=== PATIENT | female | born 2000 | race Caucasian/White ===

== ENCOUNTER 2021-08-14 18:53 | Emergency (ER) | payer MEDICAID, SELFPAY ==
[2021-08-14 18:54] VITALS: BP 116/69; PULSE 78; RESP 18; TEMP 36.5; O2SAT 99
--- NOTE | 2021-08-14 19:16 | ED.GENADUL_ITS ---
Discharge Plan Disposition Patient Disposition: HOME Condition: Stable Discharge Details Clinical Impression: Enteritis, UTI (urinary tract infection) Primary Care Provider: Unknown,Unknown ED Provider: Marquis Urban Home Meds and New Rx's Prescriptions: New sulfamethoxazole-trimethoprim [Bactrim DS] 800-160 mg tablet 1 tab PO BID Qty: 10 RF: 0 dicyclomine 20 mg tablet 20 mg PO TID Qty: 10 RF: 0 ondansetron HCl [Zofran] 4 mg tablet 4 mg PO Q8H PRNQty: 10 RF: 0 Discharge Instructions Instructions: Urinary Tract Infection in Women (ED), Enteritis (ED) Additional Instructions: Bactrim, Zofran, Bentyl as directed. Wfmw-qdy-fryxgrd medications as directed for symptomatic control. Plenty of fluids to avoid dehydration. Please watch for new or worsening symptoms and return to the ER for any concerns. Lastly, please contact your primary care provider tomorrow to discuss your ER visit and need for outpatient reevaluation. Medical Decision Making 20-year-old female, no significant past medical history, presents with nausea, vomiting, lower abdominal pain, dysuria and urinary hesitancy over the past 24 hours. Has not taken any medications for her symptoms. Seen at the urgent care and sent to the ER for further evaluation. Clinically she appears well, nontoxic, hemodynamically stable. Abdomen is nonacute. No CVA tenderness. Based upon her subjective complaints, concern for UTI, pyelonephritis, renal stone, obstruction, etc. There is no McBurney point tenderness. Denies any hematuria, vaginal bleeding or discharge. Based upon her presentation extremely low suspicion for ovarian torsion. Patient given Toradol prior to arrival. Plan is to obtain IV access, give IV fluid, and obtain routine medical screening laboratory values. Patient reports no improvement of her discomfort. In fact, getting slightly wo rse. Given IV Tylenol CBC unremarkable, no leukocytosis. Chemistries are unremarkable except for AST of 13. Urinalysis reveals lysed blood, large leuk esterase, 0-2 red cells and 20-50 white cells. Moderate epithelials and bacteria. While this does reveal contamination, certainly concerning for infection. Patient will be given 1 tablet Bactrim DS as well as 200 mg. Will attempt to obtain another urine sample Patient was able to provide another urine sample. Negative blood, negative nitrate, small leuk esterase. 0-2 red cells, 3-5 white cells, moderate epithelial cells rare bacteria. Both samples with contamination, neither indicated a culture reflexively but I have ordered 1 given my concern of her presentation. Discussed work-up thus far with patient. Laboratory values do not reveal any obvious emergent process. Again no leukocytosis. Given her presentation I do believe treating her for a UTI is reasonable. She has no CVA tenderness, low suspicion for acute pyelonephritis. Patient reports that she does not feel well and at the urgent care they discussed ultrasound. I explained to her that I cannot obtain an ultrasound at this time in the evening but I could set her up for an ultrasound tomorrow morning versus obtaining CT imaging of the abdomen and pelvis evening while she is still here. Patient would like to move forward with a CT now. CT imaging reveals enteritis with reactive mesenteric inflammation I discussed the laboratory values once again with the patient as well as the CT findings. For her suspected UTI will provide 5-day prescription of Bactrim. For her enteritis, I will provide a prescription of Bentyl. We discussed the importance of xrhb-obz-bwgptdz medication as directed for symptomatic control and staying adequately hydrate. She is comfortable this plan and has no additional questions or concerns. I will also provide her a prescription for Zofran for her nausea. She will contact her primary care provider tomorrow to discuss her symptoms, ER visit, need for outpatient reevaluation. Standard discharge and return precautions were provided This documentation was generated using [employer] dictation system, please disregard any oddities of phrase or misspellings. Imaging Data Radiologic Study: Attestation: I personally reviewed and interpreted this imaging study as follows: Imaging: CT Scan Radiologist's impression: PROCEDURE INFORMATION: Exam: CT Abdomen And Pelvis With Contrast Exam date and time: 08/14/2021 9:21 PM Age: 20 years old Clinical indication: Abdominal pain; Other: Abd. Back pain, n/v TECHNIQUE: Imaging protocol: Computed tomography of the abdomen and pelvis with contrast. Contrast material: OMNIPAQUE 350; Contrast volume: 100 ml; Contrast route: INTRAVENOUS (IV); COMPARISON: No relevant prior studies available. FINDINGS: Lungs: Small pleural-based opacities are noted in the lower lobes bilaterally. No specific consolidation. Distal airways are clear. Liver: Normal. No mass. Gallbladder and bile ducts: Normal. No calcified stones. No ductal dilation. Pancreas: Normal. No ductal dilation. Spleen: Normal. No splenomegaly. Adrenal glands: Normal. No mass. Kidneys and ureters: Normal. No hydronephrosis. Stomach and bowel: Unremarkable stomach. Nondilated small bowel. Fat planes around loops of small bowel are indistinct. There are no inflammatory changes observed around the colon. Appendix: Normal appendix. Intraperitoneal space: Mild mesenteric fat stranding. No significant free fluid. Negative for free air. Negative for abscess. Vasculature: Unremarkable. No abdominal aortic aneurysm. JAEL BRADLEY Preliminary Radiology Report [employer]KEEPING SERVICE SALES AGENT (QA) DISCREPANCY? If there is a discrepancy between the preliminary and final interpretation, please notify Andel via [email or web address]. If you do not have access to our QA portal, call our QA team at [phone] CONFIDENTIALITY STATEMENT This report is intended only for the use of the referring physician, and only in accordance with law, If you received this in error, call [phone] Page 2 of 2 Lymph nodes: Mesenteric lymph nodes are mildly prominent. Negative for pathologic lymphadenopathy. Urinary bladder: Unremarkable as visualized. Reproductive: Unremarkable as visualized. Dominant follicle right ovary 2.0 cm. Bones/joints: Unremarkable. No acute fracture. Soft tissues: Unremarkable. IMPRESSION: Findings of enteritis with reactive mesenteric inflammation Lab Data Lab results reviewed: Yes I reviewed the patient's lab results. Labs: 08/14/21 22:17 Urine - Clean Catch Urine Culture - Pending Laboratory Tests Range/Units 08/14/21 08/14/21 08/14/21 19:30 19:30 19:40 WBC (4.4-10.8) 10^3/uL 7.38 RBC (3.93-5.22) 10^6/uL 4.86 Hgb (11.2-15.7) g/dL 14.3 Hct (36.0-46.0) % 43.0 MCV (80-95) fL 88.5 MCH (27.0-33.0) pg 29.4 MCHC (32.0-36.0) % 33.3 RDW (11.7-14.6) % 11.9 Plt Count (130-400) 10^3/uL 292 MPV (8.0-11.0) fL 8.8 Immature Gran % 0.5 Neutrophils % 50.6 Lymphocytes % 37.5 Monocytes % 6.2 Eosinophils % 4.5 Basophils % 0.7 Nucleated RBC % % 0 Absolute Neutrophils (1.2-6.7) 10^3/uL 3.73 Absolute Lymphocytes (1.2-3.4) 10^3/uL 2.77 Absolute Monocytes (0.1-0.8) 10^3/uL 0.46 Absolute Eosinophils (0.0-0.7) 10^3/uL 0.33 Absolute Basophils (0.0-0.2) 10^3/uL 0.05 Sodium (136-145) mmol/L 139 Potassium (3.5-5.1) mmol/L 4.2 Chloride (98-107) mmol/L 103 Carbon Dioxide (21.0-32.0) mmol/L 28.5 Anion Gap (3-11) mmol/L 7.5 BUN (7-18) mg/dL 15 Creatinine (0.55-1.02) mg/dL 0.8 Estimated GFR/1.73 m2 (mL/min/1.73m2) >= 60.00 Glucose (74-106) mg/dL 77 Calcium (8.5-10.1) mg/dL 8.9 Total Bilirubin (0.2-1.0) mg/dL 0.4 AST (15-37) U/L 13 L ALT (14-59) U/L 20 Alkaline Phosphatase (46-116) U/L 70 Total Protein (6.4-8.2) g/dL 8.2 Albumin (3.4-5.0) g/dL 4.4 Lipase (73-393) U/L 129 Urine Color (Yellow) Yellow Urine Clarity (Clear) Cloudy Urine pH (5-8) 5.5 Ur Specific Fisher (1.005-1.025) >= 1.030 H Urine Protein (Negative) mg/dL 100 H Urine Ketones (Negative) mg/dL Negative Urine Blood (Negative) Trace-lysed H Urine Nitrite (Negative) Negative Urine Bilirubin (Negative) Negative Urine Urobilinogen (Up TO 0.2) EU/dL 0.2 Ur Leukocyte Esterase (Negative) Large H Urine RBC (0-2) HPF 0-2 Urine WBC (0-5) HPF 20-50 H Ur Epithelial Cells (Negative) HPF Moderate Urine Crystals (Negative) HPF Negative Urine Bacteria (Negative) HPF Moderate Urine Casts (Negative) LPF Negative Urine Mucus (Negative) Trace Ur Culture Indicated? No/Sq. Contamination Urine Glucose (Negative) mg/dL Negative Range/Units 08/14/21 20:42 WBC (4.4-10.8) 10^3/uL RBC (3.93-5.22) 10^6/uL Hgb (11.2-15.7) g/dL Hct (36.0-46.0) % MCV (80-95) fL MCH (27.0-33.0) pg MCHC (32.0-36.0) % RDW (11.7-14.6) % Plt Count (130-400) 10^3/uL MPV (8.0-11.0) fL Immature Gran % Neutrophils % Lymphocytes % Monocytes % Eosinophils % Basophils % Nucleated RBC % % Absolute Neutrophils (1.2-6.7) 10^3/uL Absolute Lymphocytes (1.2-3.4) 10^3/uL Absolute Monocytes (0.1-0.8) 10^3/uL Absolute Eosinophils (0.0-0.7) 10^3/uL Absolute Basophils (0.0-0.2) 10^3/uL Sodium (136-145) mmol/L Potassium (3.5-5.1) mmol/L Chloride (98-107) mmol/L Carbon Dioxide (21.0-32.0) mmol/L Anion Gap (3-11) mmol/L BUN (7-18) mg/dL Creatinine (0.55-1.02) mg/dL Estimated GFR/1.73 m2 (mL/min/1.73m2) Glucose (74-106) mg/dL Calcium (8.5-10.1) mg/dL Total Bilirubin (0.2-1.0) mg/dL AST (15-37) U/L ALT (14-59) U/L Alkaline Phosphatase (46-116) U/L Total Protein (6.4-8.2) g/dL Albumin (3.4-5.0) g/dL Lipase (73-393) U/L Urine Color (Yellow) Yellow Urine Clarity (Clear) Clear Urine pH (5-8) 6.0 Ur Specific Fisher (1.005-1.025) >= 1.030 H Urine Protein (Negative) mg/dL Negative Urine Ketones (Negative) mg/dL Negative Urine Blood (Negative) Negative Urine Nitrite (Negative) Negative Urine Bilirubin (Negative) Negative Urine Urobilinogen (Up TO 0.2) EU/dL 0.2 Ur Leukocyte Esterase (Negative) Small H Urine RBC (0-2) HPF 0-2 Urine WBC (0-5) HPF 3-5 Ur Epithelial Cells (Negative) HPF Moderate Urine Crystals (Negative) HPF Negative Urine Bacteria (Negative) HPF Rare Urine Casts (Negative) LPF Negative Urine Mucus (Negative) Moderate Ur Culture Indicated? No/Sq. Contamination Urine Glucose (Negative) mg/dL Negative HPI General Mode of arrival: EMS . Date/Time Provider Initiated Documentation: 08/14/21 18:57 . Limitations to Documentation: no limitations . Information obtained by: patient . HPI Narrative: This is a 20-year-old female, denies significant past medical history, presenting to the ER from urgent care for evaluation of urinary hesitancy, and dysuria that began last night associated with bilateral lower abdominal and back pain, reporting slightly worse on the right side. She has not taken any mwas-aee-ivpkndh medication for her symptoms. At the urgent care she was given Toradol and sent to the ER for further evaluation and potential ultrasound. Patient denies recent sick contacts. She reports mild headache. Denies headache, neck pain, chest pain, shortness of breath, current nausea. Reports vomiting x2 yesterday. Denies hematuria, diarrhea or constipation. Reports that her menstrual cycle was approximately 1 month ago, denies vaginal bleeding or discharge. Denies skin rash. Patient admits that this feels like a UTI but states it feels worse than what she remembers feeling like in the past. Related Data Home Medications Medication Instructions Recorded Confirmed dicyclomine 20 mg PO TID #10 tab 08/14/21 ondansetron HCl [Zofran] 4 mg PO Q8H PRN #10 tab 08/14/21 sulfamethoxazole-trimethoprim 1 tab PO BID #10 tab 08/14/21 [Bactrim DS] Previous Rx's Medication Instructions Recorded dicyclomine 20 mg PO TID #10 tab 08/14/21 ondansetron HCl [Zofran] 4 mg PO Q8H PRN #10 tab 08/14/21 sulfamethoxazole-trimethoprim 1 tab PO BID #10 tab 08/14/21 [Bactrim DS] Allergies Allergy/AdvReac Type Severity Reaction Status Date / Time No Known Allergies Allergy Unverified 08/14/21 19:01 General Stated Complaint: Urinary TELMA: 3 Review of Systems Constitutional Constitutional: Denies fever(s) and Reports headache(s) ENT Ears, Nose, Mouth, and Throat: Reports headache(s) and Denies neck pain Cardiovascular Cardiovascular: Denies chest pain and Denies dyspnea Respiratory Respiratory: Denies cough and Denies dyspnea Gastrointestinal Gastrointestinal: Reports abdominal pain, Denies constipation, Denies diarrhea and Reports vomiting Genitourinary Genitourinary: Denies abnormal vaginal bleeding, Denies hematuria, Reports dysuria, Denies pelvic pain, Reports urinary hesitancy and Denies vaginal discharge Musculoskeletal Musculoskeletal: Reports back pain and Denies neck pain Integumentary/Breasts Skin/Breast: Denies rash Neurologic Neurologic: Reports headache(s) PFSH All Active Problems (Updated 08/14/21 @ 22:36 by HOLLIE Richards) Enteritis (Acute) UTI (urinary tract infection) (Acute) Social History Smoking/Tobacco Use Status: Never Smoking risk assessment performed?: Yes Alcohol Intake: never Drug use: Never Substance use type: does not use Do you feel safe at home: Yes Do you feel safe in your relationship?: Yes Exam Const General: cooperative, healthy appearing, comfortable and no acute distress Orientation: alert and awake [facility] Head: normal to inspection, normocephalic and atraumatic Face and sinus: normal facial exam Mouth: moist mucous membranes Throat: posterior oropharynx normal Eyes General: appearance normal, both eyes and all related structures Conjunctivae: conjunctivae normal Neck Neck: normal visual inspection, full ROM, trachea midline and supple Resp Effort & Inspection: normal respiratory effort and able to speak in complete sentences Auscultation: clear to auscultation bilaterally Cardio Rate: regular rate Rhythm: regular rhythm GI Inspection: normal to inspection Palpation: soft, not firm, no guarding, no pulsatile masses and tender (Diffuse lower, mild.) not at McBurney's point, Quintero's sign negative and with no rebound tenderness Auscultation: normal bowel sounds Back/Spine/Pelvis Back: no CVA tenderness and back tenderness (Diffuse mild lumbar) Skin General skin exam: no rashes or lesions noted Neuro General: patient alert, patient awake, moves all extremities and no focal motor deficits Cognition: normal cognition Speech: speech normal Gait: normal gait Sensory Exam: no sensory deficits noted Psych Appearance: grossly normal Mental Status: mental status grossly normal Course Vital Signs Vital signs: Vital Signs Temperature 36.5 C 08/14/21 18:54 Pulse 78 08/14/21 18:54 Respiratory Rate 18 08/14/21 18:54 Blood Pressure 116/69 08/14/21 18:54 Pulse Oximetry 99 08/14/21 18:54 Temperature 36.5 C 08/14/21 18:54 Temperature Source Temporal Artery Scan 08/14/21 18:54 Pulse 78 08/14/21 18:54 Respiratory Rate 18 08/14/21 18:54 Respiratory Effort Non-Labored 08/14/21 18:59 Blood Pressure 116/69 08/14/21 18:54 Blood Pressure Position Sitting 08/14/21 18:54 Pulse Oximetry 99 08/14/21 18:54 Oxygen Delivery Method Room Air 08/14/21 18:54 Oxygen Flow Rate 0 08/14/21 18:54 Pain Level 6 08/14/21 18:59
[2021-08-14 19:36] LABS: Abs Immature Grans 0.04 10^3/uL (0.0-0.06); Absolute Basophil Count 0.05 10^3/uL (0.0-0.2); Absolute Eosinophil Count 0.33 10^3/uL (0.0-0.7); Absolute Lymphocyte Count 2.77 10^3/uL (1.2-3.4); Absolute Monocyte Count 0.46 10^3/uL (0.1-0.8); Absolute Neutrophil Count 3.73 10^3/uL (1.2-6.7); Basophils % 0.7; Eosinophils % 4.5; HGB 14.3 g/dL (11.2-15.7); Immature Grans % 0.5; Lymphocytes % 37.5; MCH 29.4 pg (27.0-33.0); MCHC 33.3 % (32.0-36.0); MCV 88.5 fL (80-95); MPV 8.8 fL (8.0-11.0); Monocytes % 6.2; Neutrophils % 50.6; Nucleated RBC 0 %; Platelet Count 292 10^3/uL (130-400); RBC 4.86 10^6/uL (3.93-5.22); RDW 11.9 % (11.7-14.6); RDW-SD 38.7 fL; WBC 7.38 10^3/uL (4.4-10.8)
[2021-08-14] MEDS: Normal Saline 1,000 ML 1000 ML IV (19:46)
[2021-08-14 19:50] LABS: ALT 20 U/L (14-59); AST 13 U/L (15-37); Albumin 4.4 g/dL (3.4-5.0); Alkaline Phosphatase 70 U/L (46-116); Anion Gap 7.5 mmol/L (3-11); BUN 15 mg/dL (7-18); Bilirubin, Total 0.4 mg/dL (0.2-1.0); CO2 28.5 mmol/L (21.0-32.0); CREATININE 0.8 mg/dL (0.55-1.02); Calcium 8.9 mg/dL (8.5-10.1); Chloride 103 mmol/L (98-107); Glucose 77 mg/dL (74-106); Lipase 129 U/L (73-393); Potassium 4.2 mmol/L (3.5-5.1); Sodium 139 mmol/L (136-145); Total Protein 8.2 g/dL (6.4-8.2)
[2021-08-14] MEDS: ACETAMINOPHEN 1,000 MG/100 ML BTL 400 MG IVPB (20:01)
[2021-08-14 20:20] LABS: Bilirubin Negative (Negative); Blood Trace-lysed (Negative); Clarity Cloudy (Clear); Glucose Negative (Negative); Ketones Negative (Negative); Leukocyte Esterase Large (Negative); Nitrite Negative (Negative); Specific Gravity >= 1.030 (1.005-1.025); Urobilinogen 0.2 EU/dL (Up TO 0.2); pH 5.5 (5-8)
[2021-08-14 20:27] LABS: Bacteria Moderate HPF (Negative); C & S Indicated? No/Sq. Contamination; Casts Negative LPF (Negative); Crystals Negative HPF (Negative); Epithelial Cells Moderate HPF (Negative); Mucus Trace (Negative); RBC 0-2 HPF (0-2); WBC 20-50 HPF (0-5)
[2021-08-14 20:57] LABS: Bilirubin Negative (Negative); Blood Negative (Negative); Clarity Clear (Clear); Glucose Negative (Negative); Ketones Negative (Negative); Leukocyte Esterase Small (Negative); Nitrite Negative (Negative); Specific Gravity >= 1.030 (1.005-1.025); Urobilinogen 0.2 EU/dL (Up TO 0.2)
[2021-08-14 21:05] LABS: RBC 0-2 HPF (0-2)
[2021-08-14 21:06] LABS: Bacteria Rare HPF (Negative); C & S Indicated? No/Sq. Contamination; Casts Negative LPF (Negative); Crystals Negative HPF (Negative); Epithelial Cells Moderate HPF (Negative); Mucus Moderate (Negative)
--- NOTE | 2021-08-14 21:15 | DI.CT_ITS ---
Exam(s) CT ABDOMEN PELVIS W EXAM: CT ABDOMEN PELVIS W CLINICAL HISTORY: abd/back pain, n/v TECHNIQUE: Imaging Protocol: Axial computed tomography images with coronal and sagittal reformatted images were created and reviewed CONTRAST MATERIAL: Intravenous: Omnipaque 350 Contrast volume:100 mL Oral: No COMPARISON: No exams were available for comparison FINDINGS: ABDOMEN: Lung Bases: Normal where visualized. Liver: Normal density. No measurable mass. Portal, Superior Mesenteric, and Splenic Veins: Unremarkable. Gallbladder and Biliary Tract: No radiodense calculus or dilation. Pancreas: Normal density, no abnormal calcifications or inflammatory process. Spleen: Normal. Adrenals: No masses seen. Kidneys: Normal size, contour and axis. No radiodense stones or obstructive uropathy. No masses seen. Abdominal Aorta: Abdominal portion non-dilated. Bowel: No obstruction or bowel wall thickening. Appendix is unremarkable. Peritoneal Cavity: No ascites, collection or mesenteric inflammatory response. No free air. Lymph Nodes: Mildly enlarged lymph nodes are seen in the mesentery in the right lower quadrant. Bones: Within normal limits for the patient's age. Soft Tissues: Unremarkable. PELVIS: Bladder: Symmetric distention, no gross wall thickening. Reproductive Organs: Unremarkable as visualized. There is a 2 cm right ovarian cyst. Lymph Nodes: Please see above. Bones: Within normal limits for the patient's age. IMPRESSION: 1. Mildly enlarged lymph nodes in the mesentery. This may represent a mesenteric adenitis. 2. 2 cm right ovarian cyst. RADIATION DOSE DELIVERED: 993.03mGy.cm Total DLP DATA REPOSITORY: All CT scans at this facility are submitted to the National Radiology Data Registry (NRDR) Dose Index Registry (DIR) with the [employer] ([employer]). RADIATION OPTIMIZATION: All CT scans at this facility use at least one of these dose optimization te chniques: automated exposure control; mA and/or kV adjustment per patient size (includes targeted exa ms where dose is matched to clinical indication); or iterative reconstruction.
[2021-08-14] MEDS: Omnipaque 350 MG/ML 100 ML BTL IJ (21:45)
[2021-08-14] MEDS: Phenazopyridine 200 MG TAB PO (21:48)
[2021-08-14] MEDS: Sulfameth/Trimeth DS TAB 1 TAB PO (21:48)
[2021-08-14] MEDS: Normal Saline Flush 10 ML SYR IVP (21:49)
[2021-08-14 21:56] VITALS: BP 97/64; PULSE 78; RESP 16; TEMP 36.5; O2SAT 100
--- NOTE | 2021-08-14 22:23 | DI.VRAD_ITS ---
PROCEDURE INFORMATION: Exam: CT Abdomen And Pelvis With Contrast Exam date and time: 08/14/2021 9:21 PM Age: 20 years old Clinical indication: Abdominal pain; Other: Abd. Back pain, n/v TECHNIQUE: Imaging protocol: Computed tomography of the abdomen and pelvis with contrast. Contrast material: OMNIPAQUE 350; Contrast volume: 100 ml; Contrast route: INTRAVENOUS (IV); COMPARISON: No relevant prior studies available. FINDINGS: Lungs: Small pleural-based opacities are noted in the lower lobes bilaterally. No specific consolidation. Distal airways are clear. Liver: Normal. No mass. Gallbladder and bile ducts: Normal. No calcified stones. No ductal dilation. Pancreas: Normal. No ductal dilation. Spleen: Normal. No splenomegaly. Adrenal glands: Normal. No mass. Kidneys and ureters: Normal. No hydronephrosis. Stomach and bowel: Unremarkable stomach. Nondilated small bowel. Fat planes around loops of small bowel are indistinct. There are no inflammatory changes observed around the colon. Appendix: Normal appendix. Intraperitoneal space: Mild mesenteric fat stranding. No significant free fluid. Negative for free air. Negative for abscess. Vasculature: Unremarkable. No abdominal aortic aneurysm. Lymph nodes: Mesenteric lymph nodes are mildly prominent. Negative for pathologic lymphadenopathy. Urinary bladder: Unremarkable as visualized. Reproductive: Unremarkable as visualized. Dominant follicle right ovary 2.0 cm. Bones/joints: Unremarkable. No acute fracture. Soft tissues: Unremarkable. IMPRESSION: Findings of enteritis with reactive mesenteric inflammation. Dictated and Authenticated by: Jay Singh MD. Ordering:PAULINE Cho MD
--- NOTE | 2021-08-15 02:11 | NUR.NOTE ---
Nursing Note: need to talk with care management about a pcp and a ride home [place] and the referral is in the care management mail box
== END 2021-08-15 05:59 | disposition home or self-care (01) ==
PROVIDERS: Emergency Provider Physician Assistant
DX: N39.0 Urinary tract infection, site not specified (principal); B96.89 Other specified bacterial agents as the cause of diseases classified elsewhere; K52.9 Noninfective gastroenteritis and colitis, unspecified; M54.9 Dorsalgia, unspecified; R11.2 Nausea with vomiting, unspecified; R10.9 Unspecified abdominal pain
CPT/HCPCS: 36415; 80053; 81025; 83690; 96361; 96365; 99284; 74177; 81003; 81015; 85025; 87086; J0131; J3490

== ENCOUNTER 2021-08-30 09:03 | Emergency (ER) | payer MEDICAID, SELFPAY ==
[2021-08-30] VITALS (34 sets, daily range): BP systolic 78–108; BP diastolic 11–67; PULSE 56–117; RESP 16; TEMP 36.6–37.1; O2SAT 95–100
--- NOTE | 2021-08-30 09:13 | W.ED.GENAD ---
Discharge Plan Disposition Patient Disposition: HOME Condition: Improving Discharge Details Clinical Impression: Abdominal pain, Nausea vomiting and diarrhea, Hypokalemia Primary Care Provider: Unknown,Unknown ED Provider: Marquis Urban Home Meds and New Rx's Prescriptions: New metoclopramide HCl [Reglan] 10 mg tablet 10 mg PO Q6H PRNQty: 10 RF: 0 Continued dicyclomine 20 mg tablet 20 mg PO TID Qty: 10 RF: 0 ondansetron HCl [Zofran] 4 mg tablet 4 mg PO Q8H PRNQty: 10 RF: 0 Discharge Instructions Instructions: Hypokalemia (ED), Acute Nausea and Vomiting (ED), Abdominal Pain (ED) Additional Instructions: Reglan as directed. You may also use [id number] Imodium as directed for symptomatic control of your diarrhea. Bowel rest, clear liquid diet, advance as tolerated. Please watch for new or worsening symptoms and return to the ER for any concerns. Lastly, I would like you to contact your primary care provider later today or tomorrow to discuss your ongoing symptoms, need for outpatient reevaluation, potential need for referral to specialty such as GI for further evaluation as well. Medical Decision Making 20-year-old female presents for intermittent, ongoing abdominal cramping, nausea, vomiting, diarrhea, feels dehydrated. Patient was seen in the ER on 08-14, given antibiotics for a UTI as well as diagnosed enteritis per CT. She did not finish taking all of her antibiotics but denies any pelvic pain, dysuria or hematuria. Patient contacted her primary care provider today who recommended coming to the ER. Patient states that she has not been sleeping very well and feels very tired. Also reports overall decreased p.o. intake. Clinically she has a nonsurgical abdominal examination, is afebrile, blood pressure is in the 90s over 60s which appears to be near her baseline when comparing to last visit, she is mentating without difficulty. She does have tachycardia at 112. Plan is to obtain IV access, obtain routine screening laboratory values as well as give IV fluid, 1 L normal saline, 1 L lactated Ringer's, and give IV Zofran. Will obtain stool sample given her ongoing diarrhea Patient received her Zofran IV fluid, reports nausea is much improved, no vomiting under my care. Unable to provide a stool sample Laboratory values reveal no evidence of leukocytosis or anemia. Her platelet count is normal at 183. Potassium is slightly low at 3.2, will give 40 p.o. and 10 IV. Her BUN is 10, creatinine 0.8 with a GFR greater than 60. Glucose 102. LFTs unremarkable. Lipase 64 Still awaiting stool and urine sample. No vomiting while under my care. Discussed results with patient. She is concerned that her symptoms been present for so long, would like another CT of her abdomen and pelvis. We discussed that outpatient referral to GI and further evaluations or subspecialty may be appropriate as well. Patient is also requesting that we test her thyroid as she knows thyroid issues run in her family TSH is normal at 0.72. Her urinalysis reveals small leuk esterase, otherwise unremarkable. Still awaiting stool sample. CT unremarkable for obvious emergent process Patient was able to provide a stool sample. Awaiting results. We discussed options, patient has a ride home but they are about 40 minutes away. Plan is that she will wait in the ER for her C. difficile test and her ride home. She received both liters of IV fluid and her heart rate is now in the 80s. Blood pressure is essentially unchanged 90s over 60s, she continues to mentate without difficulty. No vomiting while under my care. She is comfortable discharge home. Strict discharge and return precautions provided. She has Zofran at home, will provide Reglan. We discussed bowel rest and the importance of contacting her primary care provider to discuss her ER visit need for outpatient This documentation was generated using [employer] dictation system, please disregard any oddities of phrase or misspellings. C. difficile is negative. Awaiting stool pathogen and culture Medical Records Medical records reviewed: Yes I reviewed the patient's medical records. Imaging Data Radiologic Study: Attestation: I personally reviewed and interpreted this imaging study as follows: Imaging: CT Scan Radiologist's impression: Exam(s) CT ABDOMEN PELVIS W EXAM: CT ABDOMEN PELVIS W INDICATION: Patient enteritis 2 weeks ago, worsening symptoms. COMPARISON: CT CT ABDOMEN PELVIS W from 08/14/2021 TECHNIQUE: FINDINGS: CT examination of the abdomen and pelvis was performed with a bolus infusion of 100 cc of Omnipaque 350. Images obtained through the lung bases are unremarkable. The liver is unremarkable in appearance. Gallbladder and bile ducts are CT normal. Pancreas appears normal. Spleen is borderline enlarged and otherwise unremarkable in appearance. Adrenals appear normal. The kidneys are unremarkable with no evidence of hydronephrosis, nephrolithiasis, or renal mass.. Urinary bladder unremarkable. Abdominal aorta is of normal diameter and no major vascular abnormality is seen. No abdominal wall hernia. No abdominal or pelvic adenopathy. ASSISTANT CORPORATE SECRETARY structures appear intact. Appendix is normal. No evidence of diverticulitis or bowel obstruction. IMPRESSION: Question mild splenomegaly. Otherwise negative CT examination of the abdomen and pelvis. Lab Data Lab results reviewed: Yes I reviewed the patient's lab results. Labs: Laboratory Tests Range/Units 08/30/21 08/30/21 08/30/21 09:20 09:20 09:20 WBC (4.4-10.8) 10^3/uL 4.35 L RBC (3.93-5.22) 10^6/uL 4.74 Hgb (11.2-15.7) g/dL 14.1 Hct (36.0-46.0) % 40.2 MCV (80-95) fL 84.8 MCH (27.0-33.0) pg 29.7 MCHC (32.0-36.0) % 35.1 RDW (11.7-14.6) % 11.6 L Plt Count (130-400) 10^3/uL 183 D MPV (8.0-11.0) fL 8.6 Immature Gran % 0.5 Neutrophils % 69.6 Lymphocytes % 20.5 Monocytes % 7.8 Eosinophils % 0.9 Basophils % 0.7 Nucleated RBC % % 0 Absolute Neutrophils (1.2-6.7) 10^3/uL 3.03 Absolute Lymphocytes (1.2-3.4) 10^3/uL 0.89 L Absolute Monocytes (0.1-0.8) 10^3/uL 0.34 Absolute Eosinophils (0.0-0.7) 10^3/uL 0.04 Absolute Basophils (0.0-0.2) 10^3/uL 0.03 VBG Lactate (0.6-1.4) mmol/L 0.9 Sodium (136-145) mmol/L 135 L Potassium (3.5-5.1) mmol/L 3.2 L Chloride (98-107) mmol/L 101 Carbon Dioxide (21.0-32.0) mmol/L 22.4 Anion Gap (3-11) mmol/L 11.6 H BUN (7-18) mg/dL 10 Creatinine (0.55-1.02) mg/dL 0.8 Estimated GFR/1.73 m2 (mL/min/1.73m2) >= 60.00 Glucose (74-106) mg/dL 102 Calcium (8.5-10.1) mg/dL 8.6 Total Bilirubin (0.2-1.0) mg/dL 0.7 AST (15-37) U/L 18 ALT (14-59) U/L 16 Alkaline Phosphatase (46-116) U/L 65 Total Protein (6.4-8.2) g/dL 7.6 Albumin (3.4-5.0) g/dL 4.0 Lipase (73-393) U/L 64 TSH (0.36-3.74) uIU/mL Urine Color (Yellow) Urine Clarity (Clear) Urine pH (5-8) Ur Specific [place] (1.005-1.025) Urine Protein (Negative) mg/dL Urine Ketones (Negative) mg/dL Urine Blood (Negative) Urine Nitrite (Negative) Urine Bilirubin (Negative) Urine Urobilinogen (Up TO 0.2) EU/dL Ur Leukocyte Esterase (Negative) Urine RBC (0-2) HPF Urine WBC (0-5) HPF Ur Epithelial Cells (Negative) HPF Urine Crystals (Negative) HPF Urine Bacteria (Negative) HPF Urine Casts (Negative) LPF Urine Mucus (Negative) Urine Other (Negative) Ur Culture Indicated? Urine Glucose (Negative) mg/dL COVID-19 Source SARS-CoV-2 (PCR) (Negative) Range/Units 08/30/21 08/30/21 08/30/21 09:20 10:00 11:21 WBC (4.4-10.8) 10^3/uL RBC (3.93-5.22) 10^6/uL Hgb (11.2-15.7) g/dL Hct (36.0-46.0) % MCV (80-95) fL MCH (27.0-33.0) pg MCHC (32.0-36.0) % RDW (11.7-14.6) % Plt Count (130-400) 10^3/uL MPV (8.0-11.0) fL Immature Gran % Neutrophils % Lymphocytes % Monocytes % Eosinophils % Basophils % Nucleated RBC % % Absolute Neutrophils (1.2-6.7) 10^3/uL Absolute Lymphocytes (1.2-3.4) 10^3/uL Absolute Monocytes (0.1-0.8) 10^3/uL Absolute Eosinophils (0.0-0.7) 10^3/uL Absolute Basophils (0.0-0.2) 10^3/uL VBG Lactate (0.6-1.4) mmol/L Sodium (136-145) mmol/L Potassium (3.5-5.1) mmol/L Chloride (98-107) mmol/L Carbon Dioxide (21.0-32.0) mmol/L Anion Gap (3-11) mmol/L BUN (7-18) mg/dL Creatinine (0.55-1.02) mg/dL Estimated GFR/1.73 m2 (mL/min/1.73m2) Glucose (74-106) mg/dL Calcium (8.5-10.1) mg/dL Total Bilirubin (0.2-1.0) mg/dL AST (15-37) U/L ALT (14-59) U/L Alkaline Phosphatase (46-116) U/L Total Protein (6.4-8.2) g/dL Albumin (3.4-5.0) g/dL Lipase (73-393) U/L TSH (0.36-3.74) uIU/mL 0.72 Urine Color (Yellow) Yellow Urine Clarity (Clear) Sl Cloudy Urine pH (5-8) 6.0 Ur Specific [place] (1.005-1.025) 1.015 Urine Protein (Negative) mg/dL Negative Urine Ketones (Negative) mg/dL Negative Urine Blood (Negative) Negative Urine Nitrite (Negative) Negative Urine Bilirubin (Negative) Negative Urine Urobilinogen (Up TO 0.2) EU/dL 0.2 Ur Leukocyte Esterase (Negative) Small H Urine RBC (0-2) HPF Negative Urine WBC (0-5) HPF 0-2 Ur Epithelial Cells (Negative) HPF Rare Urine Crystals (Negative) HPF Negative Urine Bacteria (Negative) HPF Rare Urine Casts (Negative) LPF Negative Urine Mucus (Negative) Negative Urine Other (Negative) Negative Ur Culture Indicated? No Urine Glucose (Negative) mg/dL Negative COVID-19 Source Nasal/Nares SARS-CoV-2 (PCR) (Negative) Negative HPI General Mode of arrival: ambulatory. Date/Time Provider Initiated Documentation: 08/30/21 09:03. Limitations to Documentation: no limitations. Information obtained by: patient. HPI Narrative: This is a 20-year-old female, denies significant past medical history, presenting to the ER reporting abdominal cramping, back pain, nausea, vomiting that has been going on all months. She was seen in the ER on August 14, placed on antibiotics for a UTI and diagnosed with enteritis via CT. She reports only taking a few days worth of the antibiotics. Since that time she has had intermittent abdominal pain, nausea, vomiting, diarrhea and constipation states that over the past 3 or 4 days symptoms have worsened, she is not sleeping, reports feeling tired, lethargic, concern for dehydration. Feels like she is having muscle spasms. She denies recent bad food exposure or sick contacts. Denies fever, chest pain, shortness of breath, dysuria, black tarry stools or bright red blood in her stools. Patient states that she has had her to vaccinations for COVID. She denies smoking, drug use, only rare alcohol use. Patient states that yesterday evening she had 2 pure liquid bowel movements that she was unable to control. She reports diffuse abdominal cramping. Related Data Home Medications Medication Instructions Recorded Confirmed dicyclomine 20 mg PO TID #10 tab 08/14/21 08/30/21 ondansetron HCl [Zofran] 4 mg PO Q8H PRN #10 tab 08/14/21 08/30/21 metoclopramide HCl [Reglan] 10 mg PO Q6H PRN #10 tab 08/30/21 Previous Rx's Medication Instructions Recorded dicyclomine 20 mg PO TID #10 tab 08/14/21 ondansetron HCl [Zofran] 4 mg PO Q8H PRN #10 tab 08/14/21 metoclopramide HCl [Reglan] 10 mg PO Q6H PRN #10 tab 08/30/21 Allergies Allergy/AdvReac Type Severity Reaction Status Date / Time Benzodiazepines AdvReac Unverified 08/30/21 09:15 diphenhydramine AdvReac Unverified 08/30/21 09:15 [From Randallreesebraden] General TELMA: 3 Review of Systems Constitutional Constitutional: Denies fever(s) and Reports headache(s) ENT Ears, Nose, Mouth, and Throat: Reports headache(s) and Denies neck pain Cardiovascular Cardiovascular: Denies chest pain and Denies dyspnea Respiratory Respiratory: Denies cough and Denies dyspnea Gastrointestinal Gastrointestinal: Reports abdominal pain, Denies melena, Denies hematochezia, Reports constipation, Reports diarrhea, Reports nausea and Reports vomiting Genitourinary Genitourinary: Denies dysuria Musculoskeletal Musculoskeletal: Reports back pain, Reports muscle cramps and Denies neck pain Integumentary/Breasts Skin/Breast: Denies rash Neurologic Neurologic: Reports headache(s) and Reports weakness (Generalized) Hematologic/Lymphatic Hematologic/Lymphatic: Denies easy bleeding and Denies easy bruising PFSH All Active Problems (Updated 08/30/21 @ 13:50 by HOLLIE Richards) Enteritis (Acute) UTI (urinary tract infection) (Acute) Abdominal pain (Acute) Nausea vomiting and diarrhea (Acute) Hypokalemia (Acute) Social History Smoking/Tobacco Use Status: Never Smoking risk assessment performed?: Yes Alcohol Intake: never Drug use: Never Substance use type: does not use Do you feel safe at home: Yes Do you feel safe in your relationship?: Yes Exam Const General: cooperative, healthy appearing, comfortable and no acute distress Orientation: alert, awake and oriented x3 HENMT Head: normal to inspection, normocephalic and atraumatic Face and sinus: normal facial exam Mouth: moist mucous membranes abnormal (dry) Throat: posterior oropharynx normal Eyes General: appearance normal, both eyes and all related structures Conjunctivae: conjunctivae normal Neck Neck: normal visual inspection, full ROM, trachea midline and supple Resp Effort & Inspection: normal respiratory effort and able to speak in complete sentences Auscultation: clear to auscultation bilaterally Cardio Rate: tachycardic (112) Rhythm: regular rhythm GI Inspection: normal to inspection Palpation: soft, not firm, no guarding, no pulsatile masses and tender (Diffuse, mild) not at McBurney's point, Quintero's sign negative and with no rebound tenderness Auscultation: normal bowel sounds Back/Spine/Pelvis Back: no CVA tenderness and No back tenderness Skin General skin exam: no rashes or lesions noted Neuro General: patient alert, patient awake, patient oriented x3, moves all extremities and no focal motor deficits Cognition: normal cognition Speech: speech normal Gait: normal gait Motor: muscle tone normal throughout Sensory Exam: no sensory deficits noted Extrem General: normal to inspection, full ROM and capillary refill normal Psych Appearance: grossly normal Mental Status: mental status grossly normal
[2021-08-30] MEDS: Lactated Ringers 1,000 ML 1000 ML IV (09:28)
[2021-08-30 09:29] LABS: Lactate 0.9 mmol/L (0.6-1.4)
[2021-08-30 09:31] LABS: Abs Immature Grans 0.02 10^3/uL (0.0-0.06); Absolute Basophil Count 0.03 10^3/uL (0.0-0.2); Absolute Eosinophil Count 0.04 10^3/uL (0.0-0.7); Absolute Lymphocyte Count 0.89 10^3/uL (1.2-3.4); Absolute Monocyte Count 0.34 10^3/uL (0.1-0.8); Absolute Neutrophil Count 3.03 10^3/uL (1.2-6.7); Basophils % 0.7; Eosinophils % 0.9; HCT 40.2 % (36.0-46.0); HGB 14.1 g/dL (11.2-15.7); Immature Grans % 0.5; Lymphocytes % 20.5; MCH 29.7 pg (27.0-33.0); MCHC 35.1 % (32.0-36.0); MCV 84.8 fL (80-95); MPV 8.6 fL (8.0-11.0); Monocytes % 7.8; Neutrophils % 69.6; Nucleated RBC 0 %; Platelet Count 183 10^3/uL (130-400); RBC 4.74 10^6/uL (3.93-5.22); RDW 11.6 % (11.7-14.6); RDW-SD 35.8 fL; WBC 4.35 10^3/uL (4.4-10.8)
[2021-08-30] MEDS: Ondansetron 4 MG/2 ML VIAL IVP (09:31)
[2021-08-30 09:52] LABS: ALT 16 U/L (14-59); AST 18 U/L (15-37); Alkaline Phosphatase 65 U/L (46-116); Anion Gap 11.6 mmol/L (3-11); BUN 10 mg/dL (7-18); Bilirubin, Total 0.7 mg/dL (0.2-1.0); CO2 22.4 mmol/L (21.0-32.0); CREATININE 0.8 mg/dL (0.55-1.02); Calcium 8.6 mg/dL (8.5-10.1); Chloride 101 mmol/L (98-107); Glucose 102 mg/dL (74-106); Lipase 64 U/L (73-393); Potassium 3.2 mmol/L (3.5-5.1); Sodium 135 mmol/L (136-145); Total Protein 7.6 g/dL (6.4-8.2)
[2021-08-30 10:07] LABS: Source Nasal/Nares
[2021-08-30] MEDS: Potassium Chloride 20 MEQ TABCR 40 MEQ PO (10:27)
[2021-08-30] MEDS: POTASSIUM CHLORIDE 10 MEQ/100 ML BAG 100 MEQ IVPB (10:30)
--- NOTE | 2021-08-30 10:45 | DI.CT_ITS ---
Exam(s) CT ABDOMEN PELVIS W EXAM: CT ABDOMEN PELVIS W INDICATION: Patient enteritis 2 weeks ago, worsening symptoms. COMPARISON: CT CT ABDOMEN PELVIS W from 08/14/2021 TECHNIQUE: FINDINGS: CT examination of the abdomen and pelvis was performed with a bolus infusion of 100 cc of Omnipaque 3 50. Images obtained through the lung bases are unremarkable. The liver is unremarkable in appearance. Gallbladder and bile ducts are CT normal. Pancreas appears normal. Spleen is borderline enlarged and otherwise unremarkable in appearance. Adrenals appear normal. The kidneys are unremarkable with no evidence of hydronephrosis, nephrolithiasis, or renal mass.. Ur inary bladder unremarkable. Abdominal aorta is of normal diameter and no major vascular abnormality is seen. No abdominal wall hernia. No abdominal or pelvic adenopathy. ECDIS N NAVIGATION OPERATOR structures appear intact. Appendix is normal. No evidence of diverticulitis or bowel obstruction. IMPRESSION: Question mild splenomegaly. Otherwise negative CT examination of the abdomen and pelvis. RADIATION DOSE DELIVERED: 920.76mGy.cm Total DLP 920.76mGy.cm Total DLP 17.41mGy CTDIvol RADIATION OPTIMIZATION: All CT scans at this facility use at least one of these dose optimization te chniques: automated exposure control; mA and/or kV adjustment per patient size (includes targeted exa ms where dose is matched to clinical indication); or iterative reconstruction.
[2021-08-30 10:48] LABS: COVID-19 PCR Negative (Negative)
[2021-08-30] MEDS: Dicyclomine 20 MG TAB PO (10:58)
[2021-08-30] MEDS: Ketorolac 30 MG/ML VIAL IVP (10:59)
[2021-08-30] MEDS: Normal Saline 1,000 ML 1000 ML IV (11:12)
[2021-08-30] MEDS: Omnipaque 350 MG/ML 100 ML BTL IJ (12:06)
[2021-08-30 12:22] LABS: Bilirubin Negative (Negative); Blood Negative (Negative); Clarity Sl Cloudy (Clear); Glucose Negative (Negative); Ketones Negative (Negative); Leukocyte Esterase Small (Negative); Nitrite Negative (Negative); Specific Gravity 1.015 (1.005-1.025); Urobilinogen 0.2 EU/dL (Up TO 0.2)
[2021-08-30 12:35] LABS: Bacteria Rare HPF (Negative); C & S Indicated? No; Casts Negative LPF (Negative); Crystals Negative HPF (Negative); Epithelial Cells Rare HPF (Negative); Mucus Negative (Negative); Other Cells Negative (Negative); RBC Negative HPF (0-2); WBC 0-2 HPF (0-5)
[2021-08-30 13:21] LABS: TSH (W/Ref FT4) 0.72 uIU/mL (0.36-3.74)
[2021-08-30 14:10] LABS: C Diff PCR Negative (Negative)
[2021-08-31 14:51] LABS: Campylobacter PCR Negative (Negative); Salmonella PCR Negative (Negative); Shiga Toxin PCR Negative (Negative); Shigella/Enteroinvasive Ecoli Negative (Negative)
== END 2021-08-30 14:25 | disposition home or self-care (01) ==
PROVIDERS: Emergency Provider Physician Assistant
DX: R10.9 Unspecified abdominal pain (principal); R11.2 Nausea with vomiting, unspecified; E87.6 Hypokalemia; R00.0 Tachycardia, unspecified; Z20.822 Contact with and (suspected) exposure to COVID-19
CPT/HCPCS: 36415; 80053; 81025; 83690; 87493; 87505; 87635; 96361; 96365; 96375; 99284; 99285; 74177; 81003; 81015; 83605; 84443; 85025; 87086; J1885; J2405; J3480; J3490

== ENCOUNTER 2021-09-27 02:29 | Outpatient (CLI) | payer MEDICAID, SELFPAY | END 2021-09-27 02:30 | disposition home or self-care (01) | LOC: LBO 02:29 | PROVIDERS: PCP Student in an Organized Health Care Education/Training Program; Visit Provider Student in an Organized Health Care Education/Training Program ==

== ENCOUNTER 2021-11-17 12:00 | Outpatient (REF) | payer MEDICAID, SELFPAY | END 2021-11-17 12:01 | disposition home or self-care (01) | LOC: LBN 12:00 | PROVIDERS: PCP Student in an Organized Health Care Education/Training Program; Visit Provider Student in an Organized Health Care Education/Training Program | DX: R82.998 Other abnormal findings in urine (principal); R10.9 Unspecified abdominal pain | CPT/HCPCS: 87086 ==

== ENCOUNTER 2021-11-28 02:18 | Outpatient (CLI) | payer MEDICAID, SELFPAY | END 2021-11-28 02:19 | disposition home or self-care (01) | LOC: LBO 02:18 | PROVIDERS: PCP Student in an Organized Health Care Education/Training Program ==

== ENCOUNTER 2021-12-06 04:33 | Outpatient (CLI) | payer MEDICAID, SELFPAY | END 2021-12-06 04:34 | disposition home or self-care (01) | LOC: LBO 04:33 | PROVIDERS: PCP Student in an Organized Health Care Education/Training Program; Visit Provider Student in an Organized Health Care Education/Training Program ==

== ENCOUNTER 2021-12-13 01:29 | Outpatient (CLI) | payer MEDICAID, SELFPAY | END 2021-12-13 01:30 | disposition home or self-care (01) | LOC: LBO 01:29 | PROVIDERS: PCP Student in an Organized Health Care Education/Training Program; Referring Provider Student in an Organized Health Care Education/Training Program ==

== ENCOUNTER 2021-12-13 09:20 | Emergency (ER) | payer MEDICAID, SELFPAY ==
[2021-12-13 09:29] VITALS: BP 102/64; PULSE 85; RESP 16; TEMP 36.5; O2SAT 99
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
[2021-12-13 09:56] LABS: Bilirubin Negative (Negative); Blood Trace-intact (Negative); Clarity Sl Cloudy (Clear); Glucose Negative (Negative); Ketones Negative (Negative); Leukocyte Esterase Moderate (Negative); Nitrite Negative (Negative); Specific Gravity >= 1.030 (1.005-1.025); Urobilinogen 0.2 EU/dL (Up TO 0.2)
[2021-12-13] MEDS: Ketorolac 15 MG/ML VIAL IVP (09:59)
[2021-12-13] MEDS: Normal Saline 1,000 ML 1000 ML IV (09:59)
[2021-12-13] MEDS: Ondansetron 4 MG/2 ML VIAL IVP (10:00)
[2021-12-13 10:02] LABS: Bacteria Moderate HPF (Negative); C & S Indicated? No/Sq. Contamination; Casts Negative LPF (Negative); Crystals Negative HPF (Negative); Epithelial Cells Many HPF (Negative); Mucus Trace (Negative)
[2021-12-13 10:08] VITALS: RESP 17
[2021-12-13 10:13] LABS: Abs Immature Grans 0.02 10^3/uL (0.0-0.06); Absolute Basophil Count 0.03 10^3/uL (0.0-0.2); Absolute Eosinophil Count 0.34 10^3/uL (0.0-0.7); Absolute Lymphocyte Count 1.57 10^3/uL (1.2-3.4); Absolute Monocyte Count 0.39 10^3/uL (0.1-0.8); Basophils % 0.5; Eosinophils % 6.1; HCT 38.2 % (36.0-46.0); Immature Grans % 0.4; Lymphocytes % 28.3; MCH 30.1 pg (27.0-33.0); MCV 88 fL (80-95); MPV 9.1 fL (8.0-11.0); Neutrophils % 57.7; Platelet Count 186 10^3/uL (130-400); RBC 4.32 10^6/uL (3.93-5.22); RDW-SD 38.6 fL; WBC 5.55 10^3/uL (4.4-10.8)
[2021-12-13 10:23] LABS: ALT 18 U/L (14-59); AST 13 U/L (15-37); Alkaline Phosphatase 66 U/L (46-116); Anion Gap 7.2 mmol/L (3-11); BUN 8 mg/dL (7-18); Bilirubin, Total 0.6 mg/dL (0.2-1.0); CO2 27.8 mmol/L (21.0-32.0); CREATININE 0.7 mg/dL (0.55-1.02); Calcium 8.5 mg/dL (8.5-10.1); Chloride 104 mmol/L (98-107); Glucose 86 mg/dL (74-106); Potassium 3.6 mmol/L (3.5-5.1); Sodium 139 mmol/L (136-145); Total Protein 7.6 g/dL (6.4-8.2)
[2021-12-13 10:31] LABS: TSH (W/Ref FT4) 0.69 uIU/mL (0.36-3.74)
[2021-12-13 10:38] VITALS: BP 137/79; PULSE 65; RESP 17; O2SAT 100
[2021-12-13 11:04] LABS: ALT 17 U/L (14-59); AST 13 U/L (15-37); Albumin 4.1 g/dL (3.4-5.0); Alkaline Phosphatase 69 U/L (46-116); Anion Gap 8.7 mmol/L (3-11); BUN 8 mg/dL (7-18); Bilirubin, Direct 0.2 mg/dL (0.0-0.2); Bilirubin, Total 0.6 mg/dL (0.2-1.0); CO2 26.3 mmol/L (21.0-32.0); CREATININE 0.7 mg/dL (0.55-1.02); Calcium 8.9 mg/dL (8.5-10.1); Chloride 104 mmol/L (98-107); Glucose 86 mg/dL (74-106); Potassium 3.8 mmol/L (3.5-5.1); Sodium 139 mmol/L (136-145); TSH (W/Ref FT4) 0.66 uIU/mL (0.36-3.74); Total Protein 7.4 g/dL (6.4-8.2)
[2021-12-13 11:40] VITALS: BP 97/65; PULSE 71; TEMP 36.7; O2SAT 100
[2021-12-14 02:04] LABS: Vitamin D 25 Total 22.6 ng/mL (30-100)
[2021-12-18 16:11] LABS: IgA 104 mg/dL (85-499); Interpretation (See Note); Tissue Transglutaminase IgA <1.2 U/mL (<4.0)
== END 2021-12-13 11:47 | disposition home or self-care (01) ==
PROVIDERS: Emergency Provider Emergency Medicine; PCP Student in an Organized Health Care Education/Training Program
DX: R11.0 Nausea; R51.9 Headache, unspecified; R30.0 Dysuria
CPT/HCPCS: 36415; 80048; 80053; 80076; 81025; 82306; 82784; 83516; 85027; 96361; 96374; 96375; 99284; 81003; 81015; 83735; 84443; 85025; 87086; 99283; J1885; J2405

== ENCOUNTER → 2022-02-09 00:52 | Outpatient (CLI) | payer MEDICAID, SELFPAY | PROVIDERS: PCP Student in an Organized Health Care Education/Training Program; Visit Provider Student in an Organized Health Care Education/Training Program ==

== ENCOUNTER 2022-02-22 08:32 | Emergency (ER) | payer MEDICAID, SELFPAY ==
[2022-02-22 08:37] VITALS: BP 114/69; PULSE 73; RESP 16; TEMP 37; O2SAT 99
--- OUTSIDE RECORDS SUMMARY | 2022-02-22 08:38 | XMS_ITS | Clinical Summary ---
:2000 Author Organization [facility] [place] [address] Care Team Providers Name Role Phone Clara Spencer DO Primary Care Provider Encounters Date Type Specialty Care Team Description 12/08/2021 Transcribe Orders Primary Care Clara Spencer Other specified cardiac arrhythmias; B, DO Dizziness and g iddiness; Syncope and col lapse; Genetic suscept ibility to disease; Polyneuropathy from Last 3 Months Social History Tobacco Use Types Packs/Day Years Used Date Never Assessed Sex Assigned at Date Recorded Not on file Plan of Treatment Upcoming Encounters Date Type Specialty Care Team Description 03/13/2022 Procedure visit Neurology Cat Ruiz MD [facility] er Neurology [place] [id number] (Wo rk) 06/07/2022 TH Visit (TeleHealth) Neurology Carla Ruiz MD [facility] Neurology [place], [place] [phone] (Wo rk) Health Maintenance Due Date Last Done Comments Covid-19 Vaccine (#1) 11/11/2003 HPV vaccine (1 - 2-dose series) 2009 Chlamydia Screening, female 15-25 2013 HIV screen 2016 Hepatitis C Screening 2016 Tdap adult 2017 Tetanus vaccine 2017 PAP Smear 11/11/2019 Influenza (Flu) vaccine (1 of 1 - Influenza standard 04/12/2022 series) Insurance Payer Benefit Plan / Subscriber ID Effective Dates Phone Addre ss Type Group [place]ICAID [place]ICA[place] [id number] 2021-Prese [phone] [address] PRIMARY CARE nt [address] [place], [place] [phone] Care Teams Wash Driller Helper Relationship Specialty Start Date End Date Clara Spencer DO PCP - General Family Medicine 12/07/[address] [place] [id number]
--- OUTSIDE RECORDS SUMMARY | 2022-02-22 08:38 | XMS_ITS | Encounter Summary ---
:2000 Demographics Home Phone Preferred Language Unknown Marital Status Unknown Confucianism Affiliation Unknown Race Unknown Ethnic Group Unknown Author Organization [facility] Address [address] [place] [address] Care Team Providers Name Role Phone Unavailable Primary Care Provider Unavailable Encounter Details Date Type Department Care Team Description 12/13/2021 Lab Requisition [facility] Outr Resulting Lab, Pathology & Laboratory Provider [facility] [address] [place] [address] Social History Tobacco Use Types Packs/Day Years Used Date Never Assessed Sex Assigned at Date Recorded Not on file documented as of this encounter Plan of Treatment Not on filedocumented as of this encounter Procedures Procedure Name Priority Date/Time Associated Diagnosis Comme nts CELIAC DISEASE Routine 12/13/2021 9:58 EDT Result s for this PANEL procedure are i n the results section. documented in this encounter Results CELIAC DISEASE PANEL (12/13/2021 9:58 EDT) Tissue <1.2 <4.0 U/mL [facility] Transglutaminase Comment: CENTER Antibody IGA A negative result may be due to IgA deficiency and does not rule out celiac disease. LABORATORY SERVICES ? Negative: ??<4.0 U/mL ? Weak Positive: ??4.0 - 10.0 U/mL ? Positive: ??>10.0 U/mL Results were obtained with [employer] QUANTA Lite R h-tTG IgA SID assay on the [employer] DSX. IgA 104 85 - 499 [facility] mg/dL CENTER LABORATORY SERVICES Celiac Disease Negative Serology. [facility] Interpretation Celiac disease CENTER unlikely. LABORATORY Approximately 10% of SERVICES patients with celiac disease are seronegative. Patients who are already adhering to a gluten-free diet may also be seronegative. If celiac disease is highly clinically suspected, referral to gastroenterology for additional evaluation is recommended. Specimen Blood - Venous blood (substance) Performing Organization Address City/State/ZIP Code Phon e Number [facility] [address] [place] [address] SERVICES documented in this encounter Visit Diagnoses Not on filedocumented in this encounter
--- OUTSIDE RECORDS SUMMARY | 2022-02-22 08:38 | XMS_ITS | Encounter Summary ---
:2000 Author Organization [facility] [place] [address] Care Team Providers Name Role Phone Clara Spencer DO Primary Care Provider Reason for Referral Consultation (Routine) - Authorized Specialty Diagnoses / Procedures Referred By Contact Refer red To Contact Neurology Diagnoses Other specified cardiac arrhythmias Dizziness and giddiness Syncope and collapse Genetic susceptibility to disease Polyneuropathy POTS, genetic susceptibility to othe disease. Asking for tilt table testing. Clara Spencer DO [facility] [address] [place], [place] [id number] [place] [phone] Fax: Referral ID Status Reason Start Expiration Visits Visits Date Date Requested Authorized [id number] Authorized Consult, 12/08/2021 12/08/2022 6 6 Test & Treat PCP Updated and/or Approved Encounter Details Date Type Department Care Team Description 12/08/2021 Transcribe Orders eDH Incoming Guilherme Spencer spec ified cardiac arrhythmias; Referrals Clara Vicente DO Dizziness and giddiness; [phone] [address] [facility] Syncope and collapse; Genetic susceptibility to disease; [place] [address] Social History Tobacco Use Types Packs/Day Years Used Date Never Assessed Sex Assigned at Date Recorded Not on file documented as of this encounter Plan of Treatment Upcoming Encounters Date Type Specialty Care Team Description 03/13/2022 Procedure visit Neurology Cat Ruiz MD [facility] Neurology [place], [place] [address] (Wo rk) 06/07/2022 TH Visit (TeleHealth) Neurology Carla Ruiz MD [facility] er Neurology [place], [place] [address] (Wo rk) Scheduled Referrals Name Type Priority Associated Diagnoses Order S chedule Referral to Outpatient Referral Routine Other specified cardi ac Ordered: Neurology arrhythmias 12/08/2021 Dizziness and gi ddiness Syncope and christie apse Genetic susceptibility to disease Polyneuropathy documented as of this encounter Visit Diagnoses Diagnosis Other specified cardiac arrhythmias Dizziness and giddiness Syncope and collapse Genetic susceptibility to disease Genetic susceptibility to other disease Polyneuropathy Unspecified hereditary and idiopathic pe ripheral neuropathy documented in this encounter Care Teams Dipper Fish Relationship Specialty Start Date End Date Clara Spencer DO PCP - General Family Medicine 12/07/21 [facility] [address] [place] [address] documented as of this encounter
--- OUTSIDE RECORDS SUMMARY | 2022-02-22 08:38 | XMS_ITS | Encounter Summary ---
:2000 Demographics Home Phone Preferred Language Unknown Marital Status Unknown Jainism Affiliation Unknown Race Unknown Ethnic Group Unknown Author Organization [facility] Address [address] [place] [address] Care Team Providers Name Role Phone Unavailable Primary Care Provider Unavailable Encounter Details Date Type Department Care Team Description 08/30/2021 Lab Requisition [facility] Outr Resulting Lab, Pathology & Laboratory Provider [facility] [address] [place] [address] Social History Tobacco Use Types Packs/Day Years Used Date Never Assessed Sex Assigned at Date Recorded Not on file documented as of this encounter Plan of Treatment Not on filedocumented as of this encounter Procedures Procedure Name Priority Date/Time Associated Diagnosis Comme nts FECAL BACTERIAL Routine 08/30/2021 12:50 Results for this PATHOGENS BY PCR EST procedure a re in the results section. documented in this encounter Results FECAL BACTERIAL PATHOGENS BY PCR (08/30/2021 12:50 EST) Pathologist Sig nature Salmonella PCR Negative Negative [facility] Shigella/Enteroinvasive Negative Negative [facility] R E. coli LABORATORY SERVICES HN LAB CAMPYLOBACTER PCR Negative Negative [facility] ER LABORATORY SERVICES Shiga Toxin PCR Negative Negative [facility] SERVICES Specimen Feces - Specimen from rectum (specimen) Performing Organization Address City/State/ZIP Code Phon e Number [facility] [address] [place] [address] SERVICES documented in this encounter Visit Diagnoses Not on filedocumented in this encounter
[2022-02-22 09:15] LABS: Bilirubin Negative (Negative); Blood Negative (Negative); Clarity Clear (Clear); Glucose Negative (Negative); Ketones Negative (Negative); Leukocyte Esterase Small (Negative); Nitrite Negative (Negative); Specific Gravity >= 1.030 (1.005-1.025); Urobilinogen 0.2 EU/dL (Up TO 0.2)
[2022-02-22 09:20] LABS: Bacteria Few HPF (Negative); C & S Indicated? No/Sq. Contamination; Casts Negative LPF (Negative); Crystals Negative HPF (Negative); Epithelial Cells Moderate HPF (Negative); Mucus Negative (Negative); RBC Negative HPF (0-2)
--- NOTE | 2022-02-22 10:02 | DI.RAD_ITS ---
Exam(s) XR CHEST 2V PA LATERAL EXAM: XR CHEST 2V PA LATERAL CLINICAL HISTORY: left flank pain TECHNIQUE: 2D digital imaging was performed of the chest. Two images were obtained. PA and lateral views were obtained. COMPARISON: No exams were available for comparison FINDINGS: MEDIASTINUM: Normal. HEART: Normal. PULMONARY VASCULATURE: Normal. LUNGS: Clear. PLEURAL SPACE: No pleural effusion or pneumothorax. BONE:Within normal limits for the patient's age. OTHER FINDINGS:Normal. IMPRESSION: No acute pulmonary findings. DATA REPOSITORY: RADIATION DOSE DELIVERED:
[2022-02-22] MEDS: Ondansetron O.D.T. 4 MG TABEF PO (11:06)
[2022-02-22] MEDS: Ketorolac 15 MG/ML VIAL IM (11:07)
[2022-02-22 11:22] LABS: Abs Immature Grans 0.03 10^3/uL (0.0-0.06); Absolute Basophil Count 0.04 10^3/uL (0.0-0.2); Absolute Eosinophil Count 0.26 10^3/uL (0.0-0.7); Absolute Lymphocyte Count 2.43 10^3/uL (1.2-3.4); Absolute Monocyte Count 0.45 10^3/uL (0.1-0.8); Absolute Neutrophil Count 3.06 10^3/uL (1.2-6.7); Basophils % 0.6; Eosinophils % 4.1; HCT 41.7 % (36.0-46.0); HGB 13.9 g/dL (11.2-15.7); Immature Grans % 0.5; Lymphocytes % 38.8; MCH 29.3 pg (27.0-33.0); MCHC 33.3 % (32.0-36.0); MCV 88 fL (80-95); MPV 8.6 fL (8.0-11.0); Monocytes % 7.2; Neutrophils % 48.8; Platelet Count 241 10^3/uL (130-400); RBC 4.74 10^6/uL (3.93-5.22); RDW 11.9 % (11.7-14.6); RDW-SD 38.4 fL; WBC 6.27 10^3/uL (4.4-10.8)
[2022-02-22 11:36] LABS: ALT 34 U/L (14-59); AST 19 U/L (15-37); Albumin 4.3 g/dL (3.4-5.0); Alkaline Phosphatase 71 U/L (46-116); Anion Gap 8.4 mmol/L (3-11); BUN 13 mg/dL (7-18); Bilirubin, Total 0.4 mg/dL (0.2-1.0); CO2 27.6 mmol/L (21.0-32.0); CREATININE 0.7 mg/dL (0.55-1.02); Calcium 9.2 mg/dL (8.5-10.1); Chloride 104 mmol/L (98-107); Glucose 86 mg/dL (74-106); Lipase 86 U/L (73-393); Potassium 4.2 mmol/L (3.5-5.1); Sodium 140 mmol/L (136-145); Total Protein 8.2 g/dL (6.4-8.2)
[2022-02-22 11:40] VITALS: BP 99/64; PULSE 74; RESP 16; O2SAT 98
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
== END 2022-02-22 12:57 | disposition home or self-care (01) ==
PROVIDERS: Emergency Provider Physician Assistant; PCP Student in an Organized Health Care Education/Training Program
DX: M54.50 Low back pain, unspecified (principal)
CPT/HCPCS: 36415; 80053; 83690; 96365; 96368; 96372; 99284; 71046; 81003; 81015; 85025; J1885

== ENCOUNTER 2022-02-28 16:23 | Emergency (ER) | payer MEDICAID, SELFPAY ==
--- OUTSIDE RECORDS SUMMARY | 2022-02-28 16:34 | XMS_ITS | Encounter Summary ---
:2000 Author Organization [facility] [place] [address] Care Team Providers Name Role Phone Clara Spencer DO Primary Care Provider Reason for Referral Consultation (Routine) - Authorized Specialty Diagnoses / Procedures Referred By Contact Refer red To Contact Neurology Diagnoses Other specified cardiac arrhythmias Dizziness and giddiness Syncope and collapse Genetic susceptibility to disease Polyneuropathy POTS, genetic susceptibility to othe disease. Asking for tilt table testing. Clara Spencer DO [facility] 3c [address] [place], [place] [id number] [place] [phone] Fax: Referral ID Status Reason Start Expiration Visits Visits Date Date Requested Authorized [id number] Authorized Consult, 12/08/2021 12/08/2022 6 6 Test & Treat PCP Updated and/or Approved Encounter Details Date Type Department Care Team Description 12/08/2021 Transcribe Orders eDH Incoming Guilherme Spencer spec ified cardiac arrhythmias; Referrals Clara Vicente DO Dizziness and giddiness; [phone] 714 [facility] Syncope and collapse; Genetic susceptibility to disease; [place] [address] Social History Tobacco Use Types Packs/Day Years Used Date Never Assessed Sex Assigned at Date Recorded Not on file documented as of this encounter Plan of Treatment Upcoming Encounters Date Type Specialty Care Team Description 03/13/2022 Procedure visit Neurology Cat Ruiz MD [facility] Neurology [place], [place] [address] (Wo rk) 06/07/2022 TH Visit (TeleHealth) Neurology Carla Ruiz MD [facility] er Neurology [place], [place] [address] (Wo rk) Scheduled Referrals Name [...] neuropathy documented in this encounter Care Teams Finish Production Manager Relationship Specialty Start Date End Date Clara Spencer DO PCP - General Family Medicine 12/07/21 [facility] [place] [place] [address] documented as of this encounter
--- OUTSIDE RECORDS SUMMARY | 2022-02-28 16:34 | XMS_ITS | Clinical Summary ---
:2000 Demographics Home Phone Preferred Language Unknown Marital Status Unknown Lutheran Affiliation Unknown Race Unknown Ethnic Group Unknown Author Organization [facility] Address [address] [place] [address] Care Team Providers Name Role Phone Unavailable Primary Care Provider Unavailable Encounters Date Type Specialty Care Team Description 12/13/2021 Lab Requisition Clinical Laboratory Outr Resulting Lab , Provider from Last 3 Months Social History Tobacco Use Types Packs/Day Years Used Date Never Assessed Sex Assigned at Date Recorded Not on file Plan of Treatment Not on file Procedures Procedure Name Priority Date/Time Associated Diagnosis Comme nts CELIAC DISEASE Routine 12/13/2021 9:58 EDT Result s for this PANEL procedure are i n the results section. from Last 3 Months Results CELIAC DISEASE PANEL (12/13/2021 9:58 EDT) Tissue <1.2 <4.0 U/mL [facility] Transglutaminase Comment: CENTER Antibody IGA A negative result may be due to IgA deficiency and does not rule out celiac disease. LABORATORY SERVICES ? Negative: ??<4.0 U/mL ? Weak Positive: ??4.0 - 10.0 U/mL ? Positive: ??>10.0 U/mL Results were obtained with [employer] QUANTA Lite R h-tTG IgA SID assay on the [employer] DSX. IgA 104 85 - 499 [facility] mg/dL CENTER LABORATORY SERVICES Celiac Disease Negative Serology. [facility] Interpretation Celiac disease CENTER unlikely. LABORATORY Approximately 10% of SERVICES patients with celiac disease are seronegative. Patients who are already adhering to a gluten-free diet may also be seronegative. If celiac disease is highly clinically suspected, referral to gastroenterology for additional evaluation is recommended. Specimen Blood - Venous blood (substance) Performing Organization Address City/State/ZIP Code Phon e Number [facility] [address] [place] [address] SERVICES from Last 3 Months
--- OUTSIDE RECORDS SUMMARY | 2022-02-28 16:34 | XMS_ITS | Encounter Summary ---
:2000 Demographics Home Phone Preferred Language Unknown Marital Status Unknown Anabaptist Affiliation Unknown Race Unknown Ethnic Group Unknown Author Organization [facility] Address [address] [place] [address] Care Team Providers Name Role Phone Unavailable Primary Care Provider Unavailable Encounter Details Date Type Department Care Team Description 08/30/2021 Lab Requisition [facility] Outr Resulting Lab, Pathology & Laboratory Provider General acute hospital [address] [place] [address] Social History Tobacco Use Types Packs/Day Years [...] Pathologist Sig nature Salmonella PCR Negative Negative [facility] SERVICES Shigella/Enteroinvasive Negative Negative [facility] R E. coli LABORATORY SERVICES HN LAB CAMPYLOBACTER PCR Negative Negative [facility] ER LABORATORY SERVICES Shiga Toxin PCR Negative Negative [facility] Specimen Feces - Specimen from rectum (specimen) Performing Organization Address City/State/ZIP Code Phon e Number [facility] [address] [place] [address] SERVICES documented in this encounter Visit Diagnoses Not on filedocumented in this encounter
--- OUTSIDE RECORDS SUMMARY | 2022-02-28 16:34 | XMS_ITS | Clinical Summary ---
:2000 Author Organization [facility] [place] [address] Care Team Providers Name Role Phone Clara [...] 03/13/2022 Procedure visit Neurology Cat Ruiz MD [facility] er Neurology [place] [phone] (Wo rk) 06/07/2022 TH Visit (TeleHealth) Neurology Carla uRiz MD [facility] Neurology [place], [place] [phone] (Wo rk) Health Maintenance [...] Addre ss Type Group [place]ICAID [place]ICA[place] [id number] 2021-Prese [phone] [address] [address] [place], [place] [id number] Care Teams Clinical Faculty Relationship Specialty Start Date End Date Clara Spencer DO PCP - General Family Medicine 12/07/[address] [place] [id number]
[2022-02-28 16:47] VITALS: BP 121/72; PULSE 99; RESP 18; TEMP 37.1; O2SAT 100
--- NOTE | 2022-02-28 18:25 | PDOC.ERCMPRO ---
- If Service Date Differs Date of service: 02/28/22 Time of Service: 18:25 Care Management Progress Note Pt reports no significant substance use but endorses moderate depresion symptoms. Pt reports stressors including parenting, chronic health problems and attending college. Pt states she is not interested in antidepressant medication and has developed coping skills that are helpful for her. Pt reports she is in ongoing counseling with an outpatient therapist and was encouraged to continue tx. 

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
[2022-02-28 19:11] VITALS: RESP 18
--- NOTE | 2022-02-28 19:43 | NUR.NOTE ---
Called for pt in waiting area, no answer x 2. Access ui ux engineer states she and her friend left. Pt eloped without notifying staff. B[employer]INGUAL [employer] TE[employer]ER made aware.
== END 2022-02-28 19:45 ==
PROVIDERS: Emergency Provider Physician Assistant; PCP Student in an Organized Health Care Education/Training Program
DX: I49.8 Other specified cardiac arrhythmias (principal); Z53.20 Procedure and treatment not carried out because of patient's decision for unspecified reasons
CPT/HCPCS: 99281

== ENCOUNTER 2022-03-05 09:54 | Outpatient (RCR) | payer MEDICAID, SELFPAY ==
[2022-03-05] MEDS: Normal Saline Flush 10 ML SYR IVP (10:53)
[2022-03-05] MEDS: Normal Saline 1,000 ML 500 ML IV (10:53)
[2022-03-05 10:57] VITALS: BP 118/82; PULSE 105; RESP 20; TEMP 36.9; O2SAT 100
[2022-03-05 13:00] VITALS: BP 110/76; PULSE 78; RESP 20; TEMP 37.2; O2SAT 100
== END 2022-03-11 23:59 | disposition home or self-care (01) ==
LOC: INF 09:54
PROVIDERS: PCP Student in an Organized Health Care Education/Training Program; Visit Provider Student in an Organized Health Care Education/Training Program
DX: E86.0 Dehydration (principal)
CPT/HCPCS: 96360; 96361

== ENCOUNTER 2022-03-26 02:18 | Outpatient (RCR) | payer MEDICAID, SELFPAY ==
[2022-03-12 00:12] VITALS: BP 110/76; PULSE 78; RESP 20; TEMP 37.2
[2022-03-26] MEDS: Normal Saline Flush 10 ML SYR IVP (10:50)
[2022-03-26] MEDS: Normal Saline 1,000 ML 500 ML IV (10:50)
[2022-03-26 10:56] VITALS: BP 112/73; PULSE 71; RESP 16; O2SAT 98
== END 2022-04-11 23:59 | disposition home or self-care (01) ==
LOC: INF 02:18
PROVIDERS: PCP Student in an Organized Health Care Education/Training Program; Visit Provider Student in an Organized Health Care Education/Training Program
DX: E86.0 Dehydration (principal)
CPT/HCPCS: 96360; 96361

== ENCOUNTER 2022-04-25 10:26 | Outpatient (RCR) | payer MEDICAID, SELFPAY ==
[2022-04-12 00:05] VITALS: BP 112/73; PULSE 71; RESP 16; TEMP 37.2
[2022-04-25] MEDS: Normal Saline 1,000 ML 500 ML IV (12:20)
[2022-04-25] MEDS: Normal Saline Flush 10 ML SYR IVP (12:26)
[2022-04-25 12:30] VITALS: BP 106/72; PULSE 74; RESP 16; O2SAT 99
== END 2022-05-11 23:59 | disposition home or self-care (01) ==
LOC: INF 10:26
PROVIDERS: PCP Student in an Organized Health Care Education/Training Program; Visit Provider Student in an Organized Health Care Education/Training Program
DX: I49.8 Other specified cardiac arrhythmias (principal); E86.0 Dehydration
CPT/HCPCS: 96360; 96361

== ENCOUNTER 2022-07-03 09:30 | Emergency (ER) | payer MEDICAID, SELFPAY ==
[2022-07-03 09:44] VITALS: BP 148/135; PULSE 82; RESP 18; TEMP 37; O2SAT 98
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
[2022-07-03 11:44] LABS: Abs Immature Grans 0.04 10^3/uL (0.0-0.06); Absolute Basophil Count 0.05 10^3/uL (0.0-0.2); Absolute Eosinophil Count 0.17 10^3/uL (0.0-0.7); Absolute Lymphocyte Count 1.67 10^3/uL (1.2-3.4); Absolute Monocyte Count 0.41 10^3/uL (0.1-0.8); Absolute Neutrophil Count 4.24 10^3/uL (1.2-6.7); Basophils % 0.8; Eosinophils % 2.6; HCT 41.6 % (36.0-46.0); HGB 14.4 g/dL (11.2-15.7); Immature Grans % 0.6; Lymphocytes % 25.4; MCH 29.7 pg (27.0-33.0); MCHC 34.6 % (32.0-36.0); MCV 86 fL (80-95); MPV 8.7 fL (8.0-11.0); Monocytes % 6.2; Neutrophils % 64.4; Platelet Count 266 10^3/uL (130-400); RBC 4.85 10^6/uL (3.93-5.22); RDW 11.9 % (11.7-14.6); RDW-SD 37.3 fL; WBC 6.58 10^3/uL (4.4-10.8)
[2022-07-03 11:55] LABS: Bilirubin Negative (Negative); Blood Negative (Negative); Clarity Sl Cloudy (Clear); Glucose Negative (Negative); Ketones 40 mg/dL (Negative); Leukocyte Esterase Moderate (Negative); Nitrite Negative (Negative); Specific Gravity 1.025 (1.005-1.025)
[2022-07-03 12:07] LABS: Bacteria Many HPF (Negative); C & S Indicated? No/Sq. Contamination; Casts Negative LPF (Negative); Crystals Negative HPF (Negative); Epithelial Cells Many HPF (Negative); Mucus Heavy (Negative); Other Cells Negative (Negative); RBC Negative HPF (0-2); WBC 20-50 HPF (0-5)
[2022-07-03] MEDS: Normal Saline 1,000 ML 1000 ML IV (12:11)
[2022-07-03 12:14] VITALS: RESP 18
[2022-07-03 12:17] LABS: ALT 18 U/L (14-59); AST 18 U/L (15-37); Albumin 4.4 g/dL (3.4-5.0); Alkaline Phosphatase 72 U/L (46-116); Anion Gap 10.6 mmol/L (3-11); BUN 11 mg/dL (7-18); Bilirubin, Total 0.8 mg/dL (0.2-1.0); CO2 25.4 mmol/L (21.0-32.0); CREATININE 0.7 mg/dL (0.55-1.02); Calcium 9.2 mg/dL (8.5-10.1); Chloride 102 mmol/L (98-107); Estimated GFR 124.55 (mL/min/1.73m2); Glucose 84 mg/dL (74-106); Magnesium 2.1 mg/dL (1.8-2.4); Potassium 3.6 mmol/L (3.5-5.1); Sodium 138 mmol/L (136-145); TSH (W/Ref FT4) 1.01 uIU/mL (0.36-3.74); Total Protein 8.5 g/dL (6.4-8.2)
[2022-07-03 14:45] VITALS: BP 104/74; PULSE 84; RESP 14; O2SAT 98
== END 2022-07-03 14:41 | disposition home or self-care (01) ==
PROVIDERS: Emergency Provider Physician Assistant; PCP Student in an Organized Health Care Education/Training Program
DX: N39.0 Urinary tract infection, site not specified (principal); R53.1 Weakness
CPT/HCPCS: 36415; 80053; 96360; 99284; 81003; 81015; 83735; 84443; 85025

== ENCOUNTER 2022-10-27 08:48 | Emergency (ER) | payer MEDICAID, SELFPAY ==
[2022-10-27 08:58] VITALS: BP 112/65; PULSE 74; RESP 18; TEMP 36.7; O2SAT 97
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
[2022-10-27] MEDS: Normal Saline 1,000 ML 1000 ML IV (09:20)
[2022-10-27 09:33] LABS: Abs Immature Grans 0.03 10^3/uL (0.0-0.06); Absolute Basophil Count 0.05 10^3/uL (0.0-0.2); Absolute Eosinophil Count 0.28 10^3/uL (0.0-0.7); Absolute Lymphocyte Count 2.28 10^3/uL (1.2-3.4); Absolute Monocyte Count 0.38 10^3/uL (0.1-0.8); Absolute Neutrophil Count 3.88 10^3/uL (1.2-6.7); Basophils % 0.7; Eosinophils % 4.1; HCT 39.8 % (36.0-46.0); HGB 13.7 g/dL (11.2-15.7); Immature Grans % 0.4; MCHC 34.4 % (32.0-36.0); MCV 87 fL (80-95); Monocytes % 5.5; Neutrophils % 56.3; Platelet Count 231 10^3/uL (130-400); RBC 4.56 10^6/uL (3.93-5.22); RDW 11.9 % (11.7-14.6); RDW-SD 37.8 fL
[2022-10-27 09:43] LABS: ALT 16 U/L (14-59); AST 10 U/L (15-37); Alkaline Phosphatase 61 U/L (46-116); BUN 7 mg/dL (7-18); Bilirubin, Total 0.3 mg/dL (0.2-1.0); CREATININE 0.8 mg/dL (0.55-1.02); Calcium 8.8 mg/dL (8.5-10.1); Chloride 104 mmol/L (98-107); Estimated GFR 106.11 (mL/min/1.73m2); Glucose 91 mg/dL (74-106); Potassium 3.9 mmol/L (3.5-5.1); Sodium 137 mmol/L (136-145); Total Protein 7.3 g/dL (6.4-8.2)
[2022-10-27] MEDS: Normal Saline 500 ML IV (10:11)
[2022-10-27 10:33] VITALS: BP 95/48; PULSE 66; RESP 14; O2SAT 99
== END 2022-10-27 10:42 | disposition home or self-care (01) ==
PROVIDERS: Emergency Provider Student in an Organized Health Care Education/Training Program; PCP Student in an Organized Health Care Education/Training Program
DX: E86.0 Dehydration (principal); Q79.60 Ehlers-Danlos syndrome, unspecified; G90.A Postural orthostatic tachycardia syndrome [POTS]
CPT/HCPCS: 36415; 80053; 96360; 99284; 85025

== ENCOUNTER 2022-11-14 08:16 | Emergency (ER) | payer MEDICAID, SELFPAY ==
[2022-11-14] VITALS (32 sets, daily range): BP systolic 91–115; BP diastolic 55–72; PULSE 64–88; RESP 13–37; TEMP 37; O2SAT 97–100
--- NOTE | 2022-11-14 08:12 | NUR.NOTE ---
seizure pads applied
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
--- NOTE | 2022-11-14 08:30 | RT.EKG_ITS ---
APPROVED REPORT Exam: Resting ECG Reason for Exam: seizure activity Patient Location: E HR:76 bpm ECG Measurements Heart Rate 76 AXIS MO 162 P 55 QRSd 82 QRS 43 QT 353 T 50 QTc 397 Conclusion Sinus rhythm...normal P axis, V-rate 60- 99
[2022-11-14 08:42] LABS: Abs Immature Grans 0.07 10^3/uL (0.0-0.06); Absolute Basophil Count 0.03 10^3/uL (0.0-0.2); Absolute Eosinophil Count 0.03 10^3/uL (0.0-0.7); Absolute Lymphocyte Count 0.84 10^3/uL (1.2-3.4); Absolute Monocyte Count 0.43 10^3/uL (0.1-0.8); Absolute Neutrophil Count 6.44 10^3/uL (1.2-6.7); Basophils % 0.4; Eosinophils % 0.4; HCT 42.2 % (36.0-46.0); HGB 14.7 g/dL (11.2-15.7); Immature Grans % 0.9; Lymphocytes % 10.7; MCH 30.2 pg (27.0-33.0); MCHC 34.8 % (32.0-36.0); MCV 87 fL (80-95); MPV 8.9 fL (8.0-11.0); Monocytes % 5.5; Neutrophils % 82.1; Platelet Count 223 10^3/uL (130-400); RBC 4.86 10^6/uL (3.93-5.22); RDW 11.9 % (11.7-14.6); RDW-SD 38.3 fL; WBC 7.84 10^3/uL (4.4-10.8)
[2022-11-14] MEDS: levETIRAcetam 1,000 MG in Normal Saline 100 ML 400 MG IVPB (08:47)
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
[2022-11-14] MEDS: ACETAMINOPHEN 1,000 MG/100 ML BTL 400 MG IVPB (09:08)
[2022-11-14 09:10] LABS: ALT 17 U/L (14-59); AST 12 U/L (15-37); Albumin 4.1 g/dL (3.4-5.0); Alkaline Phosphatase 64 U/L (46-116); Anion Gap 12.9 mmol/L (3-11); BUN 9 mg/dL (7-18); Bilirubin, Total 0.4 mg/dL (0.2-1.0); CO2 21.1 mmol/L (21.0-32.0); Calcium 8.8 mg/dL (8.5-10.1); Chloride 102 mmol/L (98-107); Creatine Kinase 69 U/L (26-192); Estimated GFR 80.68 (mL/min/1.73m2); Glucose 107 mg/dL (74-106); Magnesium 2.2 mg/dL (1.8-2.4); Potassium 3.8 mmol/L (3.5-5.1); Sodium 136 mmol/L (136-145); TSH (W/Ref FT4) 0.77 uIU/mL (0.36-3.74); Total Protein 7.9 g/dL (6.4-8.2); Troponin I < 50 ng/L (<or=60)
--- NOTE | 2022-11-14 09:11 | NUR.NOTE ---
Amandeep (mom) [phone] called, pt gave staff permission to speak with mother on phone to update. Mother tells this RN that she believes pt has a brain tumor because she had a seizure today and last night and has been having mood swings. Mother asked for test for seizure, she was informed there is no specific test we can do to determine pt had a seizure. Mother was also aware of the fact that pt has been prescribed psychiatric meds for behavior and mood but has not started them yet. This RN informed mother that the physician has not determined if pt had a seizure at this point. Mother also asked for the staff to stop accusing pt of being a drug abuser. This RN informed mother that we have not assumed or accused pt of drug or alcohol abuse.
[2022-11-14] MEDS: Normal Saline 1,000 ML 1000 ML IV (09:40)
[2022-11-14] MEDS: Ketorolac 30 MG/ML VIAL IVP (11:12)
[2022-11-14] MEDS: Povidone-Iodine Soln. 118 ML BTL (13:45)
[2022-11-14 14:16] LABS: Glucose (CSF) 67 mg/dL (40-70); Total Protein (CSF) 38 mg/dL (15-45)
[2022-11-14 14:26] LABS: Bilirubin Negative (Negative); Blood Moderate (Negative); Clarity Sl Cloudy (Clear); Glucose Negative (Negative); Ketones Trace mg/dL (Negative); Leukocyte Esterase Negative (Negative); Nitrite Negative (Negative); Specific Gravity 1.025 (1.005-1.025); Urobilinogen 0.2 mg/dL (Up to 0.2)
[2022-11-14 14:41] LABS: Bacteria Negative HPF (Negative); Crystals Few Amorphous HPF (Negative); Epithelial Cells Rare HPF (Negative); WBC Negative HPF (0-5)
[2022-11-14 14:42] LABS: C & S Indicated? No; Casts 3-5 Fine Granular LPF (Negative); Mucus Trace (Negative)
[2022-11-14 14:47] LABS: *AMPHETAMINES SCREEN URINE Negative (Negative); *BARBITURATES SCREEN URINE Negative (Negative); *BENZODIAZEPINES SCREEN URINE Negative (Negative); Cannabinoids THC Positive (Negative); Cocaine Screen,Urine Negative (Negative); METHADONE URINE SCREEN Negative (Negative); OPIATES URINE SCREEN Negative (Negative)
[2022-11-14 14:48] LABS: Tricyclic Antidepressants Negative (Negative)
[2022-11-14 15:03] LABS: Clarity Clear; RBC 1 /mm3 (0-5); Tube # 4; WBC 0 /uL (0-5); Xanthochromia Absent
== END 2022-11-14 15:28 | disposition home or self-care (01) ==
PROVIDERS: Emergency Provider Student in an Organized Health Care Education/Training Program; PCP Student in an Organized Health Care Education/Training Program
DX: G40.909 Epilepsy, unspecified, not intractable, without status epilepticus (principal); R51.9 Headache, unspecified; Q79.60 Ehlers-Danlos syndrome, unspecified
CPT/HCPCS: 36415; 62270; 80053; 80307; 82550; 82945; 89050; 89051; 93005; 96361; 96365; 96367; 96375; 99284; 70450; 81003; 81015; 83735; 84157; 84443; 84484; 85025; 87070; 87205; 93010; J0131; J1885; J1953

== ENCOUNTER 2022-12-03 07:11 | Outpatient (RCR) | payer MEDICAID, SELFPAY ==
[2022-12-03] MEDS: Normal Saline 1,000 ML 500 ML IV (09:30)
[2022-12-03 09:49] VITALS: BP 104/70; PULSE 74; O2SAT 98
[2022-12-03 09:50] LABS: HCT 40.6 % (36.0-46.0); HGB 13.9 g/dL (11.2-15.7); MCHC 34.2 % (32.0-36.0); MCV 88 fL (80-95); MPV 8.8 fL (8.0-11.0); Platelet Count 285 10^3/uL (130-400); RBC 4.63 10^6/uL (3.93-5.22); RDW 11.9 % (11.7-14.6); RDW-SD 38.2 fL; WBC 6.82 10^3/uL (4.4-10.8)
[2022-12-03 10:01] LABS: Anion Gap 7.5 mmol/L (3-11); BUN 9 mg/dL (7-18); CO2 24.5 mmol/L (21.0-32.0); CREATININE 0.7 mg/dL (0.55-1.02); Calcium 9.1 mg/dL (8.5-10.1); Chloride 107 mmol/L (98-107); Estimated GFR 123.78 (mL/min/1.73m2); Glucose 79 mg/dL (74-106); Potassium 3.9 mmol/L (3.5-5.1); Sodium 139 mmol/L (136-145)
[2022-12-03 10:44] LABS: Vitamin D 25 Total 28.3 ng/mL (30-100)
[2022-12-03 11:11] LABS: Creatinine,Urine 41.36 mg/dL
[2022-12-03] MEDS: Normal Saline Flush 10 ML SYR IVP (12:21)
[2022-12-06 14:40] LABS: Coproporphyrin, Tetra 22 nmol/L (<=110); Uroporphyrin, Octa 2 nmol/L (<=30)
== END 2022-12-09 23:59 | disposition home or self-care (01) ==
LOC: INF 07:11
PROVIDERS: PCP Student in an Organized Health Care Education/Training Program; Visit Provider Student in an Organized Health Care Education/Training Program
DX: E80.21 Acute intermittent (hepatic) porphyria (principal); R10.9 Unspecified abdominal pain; R56.9 Unspecified convulsions; E86.0 Dehydration; G90.A Postural orthostatic tachycardia syndrome [POTS]
CPT/HCPCS: 36415; 80048; 82306; 85027; 96360; 96361; 82565; 84110; 84120

== ENCOUNTER 2022-12-09 13:59 | Observation (INO) | payer MEDICAID, SELFPAY ==
[2022-12-09] VITALS (21 sets, daily range): BP systolic 95–117; BP diastolic 57–80; PULSE 76–98; RESP 9–37; TEMP 36.5–37.3; O2SAT 97–100
--- NOTE | 2022-12-09 14:00 | DI.RAD_ITS ---
Exam(s) XR SHOULDER RT COMPLETE 2+V EXAM: XR SHOULDER RT COMPLETE 2+V CLINICAL HISTORY: Right shoulder pain. TECHNIQUE: 2D digital imaging was performed of the right shoulder. Five images were obtained. AP, Grashey, Y-view and axillary views were obtained. COMPARISON: No exams were available for comparison FINDINGS: BONES: No acute fracture is present. No bony destructive lesion is seen. JOINTS: No dislocation present. SOFT TISSUE: Normal. IMPRESSION: Unremarkable radiographs of the right shoulder. DATA REPOSITORY: RADIATION DOSE DELIVERED:
--- NOTE | 2022-12-09 14:00 | RT.EKG_ITS ---
APPROVED REPORT Exam: Resting ECG Reason for Exam: overdose Patient Location: E HR:91 bpm ECG Measurements Heart Rate 91 AXIS WV 148 P 58 QRSd 81 QRS 20 QT 337 T 49 QTc 415 Conclusion Sinus rhythm...normal P axis, V-rate 60- 99 Narrow complex normal sinus rhythm at a rate of 91. Intervals within normal limits. Mild ST segment elevation more pronounced compared to prior in V2. No ST segment depressions. No T wave inversions . Difficult rhythm to interpret in V6 secondary to artifact. No acute injury pattern.
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
--- NOTE | 2022-12-09 14:15 | DI.CT_ITS ---
Exam(s) CT HEAD WO EXAM: CT HEAD WO CLINICAL HISTORY: History of head strike right-sided temporal ecchym. TECHNIQUE: Imaging Protocol: Axial computed tomography images with coronal and sagittal reformatted images were created and reviewed COMPARISON: CT CT HEAD WO from 11/14/2022 FINDINGS: Ventricles and Extra axial spaces: Normal in size and morphology for the patient's age. Hemorrhage: None. Cerebral parenchyma: Normal. Midline shift: None. Brainstem/Cerebellum: Normal. Calvarium: Normal. Visualized Paranasal sinuses/Mastoids: There is again seen complete opacification of the left maxilla ry sinus and mucoperiosteal thickening of both the left frontal sinus and left ethmoid air cells. Soft Tissues: Unremarkable. IMPRESSION: 1. No acute intracranial process. 2. Chronic sinus disease. RADIATION DOSE DELIVERED: 819.88mGy.cm Total DLP DATA REPOSITORY: All CT scans at this facility are submitted to the National Radiology Data Registry (NRDR) Dose Index Registry (DIR) with the [employer] (ACR). RADIATION OPTIMIZATION: All CT scans at this facility use at least one of these dose optimization te chniques: automated exposure control; mA and/or kV adjustment per patient size (includes targeted exa ms where dose is matched to clinical indication); or iterative reconstruction.
[2022-12-09] MEDS: Normal Saline 1,000 ML 1000 ML IV ×2 (14:36→15:58)
--- NOTE | 2022-12-09 14:38 | NUR.NOTE ---
Nursing Note: Discussed case with poison control, assess for drowsiness, GI upset, AMS due to seizure medications in combination with anticholinergics. Can also cause hallucinations, tachycardia, resp depression. Plan for support treatments as needed, bicarb bolus for QRS widening, timed acetaminophen level testing. Obs for 6-8 hours.
[2022-12-09 14:53] LABS: Abs Immature Grans 0.06 10^3/uL (0.0-0.06); Absolute Basophil Count 0.03 10^3/uL (0.0-0.2); Absolute Eosinophil Count 0.08 10^3/uL (0.0-0.7); Absolute Lymphocyte Count 1.05 10^3/uL (1.2-3.4); Absolute Neutrophil Count 7.33 10^3/uL (1.2-6.7); Basophils % 0.3; Eosinophils % 0.9; HCT 46.6 % (36.0-46.0); HGB 15.9 g/dL (11.2-15.7); Immature Grans % 0.7; Lymphocytes % 11.6; MCH 29.9 pg (27.0-33.0); MCHC 34.1 % (32.0-36.0); MCV 88 fL (80-95); Monocytes % 5.5; Platelet Count 285 10^3/uL (130-400); RBC 5.31 10^6/uL (3.93-5.22); RDW-SD 38.4 fL; WBC 9.05 10^3/uL (4.4-10.8)
[2022-12-09 15:11] LABS: Creatine Kinase 62 U/L (26-192)
[2022-12-09 15:14] LABS: ALT 26 U/L (14-59); AST 18 U/L (15-37); Albumin 5.2 g/dL (3.4-5.0); Alkaline Phosphatase 74 U/L (46-116); Anion Gap 13.9 mmol/L (3-11); BUN 9 mg/dL (7-18); CO2 24.1 mmol/L (21.0-32.0); CREATININE 1.1 mg/dL (0.55-1.02); Calcium 10.2 mg/dL (8.5-10.1); Chloride 105 mmol/L (98-107); Estimated GFR 71.96 (mL/min/1.73m2); Glucose 88 mg/dL (74-106); Magnesium 2.3 mg/dL (1.8-2.4); Potassium 3.9 mmol/L (3.5-5.1); Sodium 143 mmol/L (136-145); Total Protein 9.5 g/dL (6.4-8.2); Troponin I < 50 ng/L (<or=60)
[2022-12-09 15:22] LABS: ETHANOL BLOOD < 3.0 mg/dL (<10)
--- NOTE | 2022-12-09 15:28 | DI.VRAD_ITS ---
PROCEDURE INFORMATION: Exam: CT Head Without Contrast Exam date and time: 12/09/2022 2:56 PM Age: 22 years old Clinical indication: Other: History of head strike right-sided temporal ecchym TECHNIQUE: Imaging protocol: Computed tomography of the head without contrast. COMPARISON: CT HEAD WO 11/14/2022 10:03 AM FINDINGS: Brain: No intracranial hemorrhage. No evidence of large vessel territory infarct. No mass or mass effect. Cerebral ventricles: Ventricles and sulci are appropriate for age. Paranasal sinuses: The left maxillary sinus is again completely filled with soft tissue density. Mucoperiosteal thickening within the left frontal sinus and left ethmoid air cells are also unchanged. No air-fluid levels. Mastoid air cells: Visualized mastoid air cells are well aerated. Bones/joints: Unremarkable. No acute fracture. Soft tissues: Unremarkable. IMPRESSION: 1. No acute intracranial abnormalities. 2. Stable chronic inflammatory changes of the left maxillary, left ethmoid and left frontal sinuses Dictated and Authenticated by: Jed Bejarano MD. Ordering:PEPE De La Cruz MD
--- NOTE | 2022-12-09 15:29 | DI.VRAD_ITS ---
PROCEDURE INFORMATION: Exam: XR Right Shoulder Exam date and time: 12/09/2022 3:06 PM Age: 22 years old Clinical indication: Pain; Shoulder; Right TECHNIQUE: Imaging protocol: Radiologic exam of the right shoulder. Views: 2 or more views. COMPARISON: CR XR CHEST 2V PA LATERAL 02/22/2022 9:56 AM FINDINGS: Bones/joints: No fracture or dislocation. Joint spaces are unremarkable. Soft tissues: No significant abnormality IMPRESSION: No acute findings. Dictated and Authenticated by: Jed Bejarano MD. Ordering:PEPE De La Cruz MD
[2022-12-09 15:34] LABS: HCG Qual (Serum) Negative
[2022-12-09 15:43] LABS: Salicylate < 2.8 mg/dL (<2.8)
[2022-12-09 15:47] LABS: Acetaminophen < 2 ug/mL (10-30)
--- NOTE | 2022-12-09 15:59 | NUR.NOTE ---
Nursing Note: patient continues to rest but is arousable to voice. VSS, 1:[address]
--- NOTE | 2022-12-09 17:20 | NUR.NOTE ---
Nursing Note: Amandeep Becerril mother [phone]
[2022-12-09 19:11] LABS: Acetaminophen < 2 ug/mL (10-30)
--- NOTE | 2022-12-09 20:17 | NUR.NOTE ---
Nursing Note: patient frustrated related to family dynamic and concern for sons care. States that she has not been taking regularly scheduled medications at this time. Feels that she needs inpatient care to address SI.
--- NOTE | 2022-12-09 21:29 | NUR.NOTE ---
2100 medically cleared, nursing and MD choose a room change to psyche room 5 from room 6. pt wanted to transfer in her bed, I told her to walk into room 5 because I did not want the trauma bed going into 5. pt fell/colapsed to the floor on her knees while supported by a nurse on each side. able to stand and walk the remaining few steps to her bed. pt angry that I made her walk. Nursing Note:
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
--- NOTE | 2022-12-09 21:59 | ED.PROG_ITS ---
Date of service: 12/09/22 Time of Service: 20:00 Medical Decision Making 1999 --please see Dr. Joya's note for initial presentation, exam and plan. Case endorsed to follow-up with mental health regarding disposition. Patient is medically cleared and voluntary. 2009 --discussed with mental health and inpatient psychiatric hospitalization has been recommended. Patient is voluntary. Discussed with nursing finishing supervisor plastic sheets and we can admit patient to the floor while awaiting placement. 2129 --Case discussed with Dr. Davis who accepts patient for admission while awaiting placement. 2329 --before transfer to the floor, nursing had reported that patient fell to the ground during transfer from room 6 to room 5 while ambulating. Patient reports that she has a history of POTS syndrome and this happens regularly when she stands up quickly. She denies any injury but states she fell to the ground. Denies no head injury, LOC or vomiting. She has no evidence of new trauma on exam and has normal range of motion of bilateral upper and lower extremities without deformity, pain with range of motion, tenderness. She has no chest or abdominal tenderness. No midline spinal tenderness. No indication for imaging at this time. Patient is a 22-year-old female with a history of POTS, Ananth-Danlos syndrome, PTSD, borderline personality disorder, pituitary adenoma and multiple previous suicide attempts had presented for intentional overdose of several of her medications at 10am today. She reports to me now that she took 20 tabs of her doxepin and a combination of several doses of her cyclobenzaprine, Compazine, Lamictal, ibuprofen among several of her other regular medications of which the triage note mention Keppra. There was no report of pt taking doxepin overdose this morning. Patient had been medically cleared upon my arrival at 8 PM. As time of ingestion was 10 AM, based on concern for TCA toxicity, patient would still be medically cleared at this time. She had not provided a urine sample before transfer to the floor. Pupils are equal bilaterally, 2 mm in size and reactive to light. She is hemodynamically stable. Her EKG on arrival was reassuring with normal rate, rhythm and intervals. Medical Records Medical records reviewed: Yes I reviewed the patient's medical records. Sign Out Sign Out Data: Sign Out Comment: Please follow-up recommendations from a mental health, confirm home medications, and continue monitoring in this voluntary patient who is medically cleared. Last updated by Jono Joya MD at 12/09/22 19:45 Discharge Plan Disposition Patient Disposition: Admit to [facility] Condition: Stable Discharge Details Clinical Impression: Suicide attempt by drug overdose Admit Date/Time: 12/09/22 21:47 Admit Provider: Fredrick Davis Attending Provider: Fredrick Davis Primary Care Provider: Clara Spencer ED Provider: Daphney Pringle
[2022-12-10 03:30] VITALS: BP 98/63; PULSE 76; RESP 16; TEMP 36.5; O2SAT 99
[2022-12-10 07:00] VITALS: BP 106/65; PULSE 71; PULSE 85; RESP 16; TEMP 37.1; O2SAT 100
--- NOTE | 2022-12-10 07:15 | RT.EKG_ITS ---
APPROVED REPORT Exam: Resting ECG Reason for Exam: qtc monitoring, polypharmacy OD Patient Location: I HR:84 bpm ECG Measurements Heart Rate 84 AXIS NE 145 P 53 QRSd 88 QRS 35 QT 383 T 38 QTc 453 Conclusion Sinus rhythm...normal P axis, V-rate 50- 99 Probable left atrial enlargement...P >50mS, <-0.10mV V1 RSR' in V1 or V2, probably normal variant...small R' only
--- NOTE | 2022-12-10 08:17 | NUR.NOTE ---
Nursing Note: educated about need for urine spec. hat ash collector and spec cup in the room.
--- NOTE | 2022-12-10 08:19 | NUR.NOTE ---
Nursing Note: @0770 spoke with charge nurse about pt refusal to change into safety clothing per protocol. pt states i want to see a doctor before i do that, i know hes your boss this rn attempted to educate pt on policies and changing into safety clothing is for pt safety. pt becoming aggitated and repeating that she needs to speak with the doctor prior. this rn notified charge nurse hardeep and she notified md with no response. this rn asked charge for follow up regarding provider followup
--- NOTE | 2022-12-10 11:27 | NUR.NOTE ---
This consumer loan underwriter went in to see patient in regards to safety concerns brought to light from nursing staff. Patient and this consumer loan underwriter discussed interim care plan placed in lieu of mental health screening. patient declined to change into paper scrubs and to hand over her cell phone at this time and requested new nurse and cpso. MD and CM are aware and staff will wait for MH screening to determine changes to care plan.
[2022-12-10 13:06] LABS: Bilirubin Negative (Negative); Blood Negative (Negative); Clarity Clear (Clear); Glucose Negative (Negative); Ketones 15 mg/dL (Negative); Leukocyte Esterase Negative (Negative); Nitrite Negative (Negative); Specific Gravity >= 1.030 (1.005-1.025); Urobilinogen 0.2 mg/dL (Up to 0.2); pH 5.5 (5-8)
[2022-12-10 13:27] LABS: *AMPHETAMINES SCREEN URINE Negative (Negative); *BARBITURATES SCREEN URINE Negative (Negative); *BENZODIAZEPINES SCREEN URINE Negative (Negative); Cannabinoids THC Positive (Negative); Cocaine Screen,Urine Negative (Negative); METHADONE URINE SCREEN Negative (Negative); OPIATES URINE SCREEN Negative (Negative)
[2022-12-10 13:29] LABS: Tricyclic Antidepressants Positive (Negative)
[2022-12-10 13:42] LABS: Epithelial Cells Few HPF (Negative); RBC Negative HPF (0-2)
[2022-12-10 13:43] LABS: Bacteria Moderate HPF (Negative); C & S Indicated? Yes; Casts Negative LPF (Negative); Crystals Negative HPF (Negative); Mucus Trace (Negative); Other Cells Negative (Negative)
--- NOTE | 2022-12-10 14:12 | CMSP_ITS ---
- If Service Date Differs Date of service: 12/10/22 Time of Service: 14:12 Care Management Safety Plan Status: Voluntary - Reason for Wait Reason for Wait: Inpatient Admission (Awaiting inpatient psych treatment) Juliana is medically cleared per provided and remains at [facility] while awaiting voluntary placement at an accepting inpatient psych facility. Juliana is being screened by [facility] clinician's per protocol. Referral's are pending, Antony is reviewing. Juliana is refusing to wear paper scrubs, reporting that they cause her to have severe acne. Per Huddle with Juliana, JYOTI Medeiros, RN Physics Technician Kavya, Hospitalist Kia, primary RN and CM, Juliana may wear a cloth gown, at RN discretion. Juliana shares that she has planning to do with family and DCF surrounding arrangements for her son and is offered a cordless hospital phone. CM assisted patient with making a list of contacts. VOLUNTARY FOR INPATIENT PSYCHIATRIC STABILIZATION. Safety plan has been established with patient, and care team, to adhere to patient goals, identify restrictions based on behavioral status, address nutrition, and determine allowed personal belongings, tools for hygiene and personal care. Determine level of activity including ambulation, level of supervision, visitors, and determine privileges based on behaviors and level of engagement by pt. SAFETY PLAN: 1. Will remain on suicide precautions. 2. Will remain in room under direct supervision of one-on-one staff at all times provided by [employer]; SUSANNA, PROFESSOR OF PRACTICE business management professor. 3. May have paper cups, plates, finger foods as well as a cardboard spoon with which to eat meals. 4. Follow [facility] Management of the Admitted Behavioral Health Patient policy. 5. Comfort bath system only, shower permitted with escort at RN discretion. 6. No personal belongings-soft items permitted at RN discretion. 7. Visitors-none at this time. 8. Activities: soft cart items approved per RN discretion. 9. Bathroom privileges with escort in the ED, available in room without limitation on M/S. 10. Phone: contact limited to family and legal at this time, via cordless phone at RN discretion. 11. Due to VOLUNTARY status, if patient wishes to leave [facility], staff will contact [facility] Crisis Screener ([phone]) and On-Call Ship Construction Teacher ([phone]) as soon as possible. In the event of elopement, notify [facility] Police ([phone]). Patient is currently voluntarily at [facility] and seeking inpatient admission when a bed becomes available. [facility] Frontline Pilot Plant Operator will continue seeking placement. Please contact the Embossing Machine Operator Ship Construction Teacher ([phone]) and [facility] Pilot Plant Operator ([phone]) for any needed changes in the Safety Plan. Safety plan has been provided to interdepartmental care team.
--- NOTE | 2022-12-10 14:12 | CMPROGNOTE_ITS ---
- If Service Date Differs Date of service: 12/10/22 Time of Service: 14:12 Care Management Progress Note S/O: Juliana is medically cleared per provided and remains at [facility] while awaiting voluntary placement at an accepting inpatient psych facility. Juliana is being screened by [facility] clinician's per protocol. Referral's are pending, Antony is reviewing. Juliana is refusing to wear paper scrubs, reporting that they cause her to have severe acne. Per Huddle with Juliana, JYOTI Medeiros, RN Skiving Machine Operator Kavya, Hospitalist Kia, primary RN and CM, Juliana may wear a cloth gown, at RN discretion. Juliana shares that she has planning to do with family and DCF surrounding arrangements for her son and is offered a cordless hospital phone. CM assisted patient with making a list of contacts. A: 22 year old female admitted to [facility] on 12/09/22 for Drug OD P: Awaiting Voluntary Inpatient Psych treatment. Per [facility] Antony is reviewing. Juliana will require secure transport to the appropriate accepting facility once accepted. If Juliana chooses to leave [facility], [facility] will be notified as identified in her Safety Plan.
--- NOTE | 2022-12-10 14:12 | PDOC.CMPRO ---
- If Service Date Differs Date of service: 12/10/22 Time of Service: 14:12 Care Management Progress Note S/O: Juliana is medically cleared per provided and remains at [facility] while awaiting voluntary placement at an accepting inpatient psych facility. Juliana is being screened by [facility] clinician's per protocol. Referral's are pending, Antony is reviewing. Juliana is refusing to wear paper scrubs, reporting that they cause her to have severe acne. Per Huddle with Juliana, JYOTI Medeiros, RN Hhas Kavya, Hospitalist Kia, primary RN and CM, Juliana may wear a cloth gown, at RN discretion. Juliana shares that she has planning to do with family and DCF surrounding arrangements for her son and is offered a cordless hospital phone. CM assisted patient with making a list of contacts. A: 22 year old female admitted to [facility] on 12/09/22 for Drug OD P: Awaiting Voluntary Inpatient Psych treatment. Per [facility] Antony is reviewing. Juliana will require secure transport to the appropriate accepting facility once accepted. If Juliana chooses to leave [facility], [facility] will be notified as identified in her Safety Plan.
--- NOTE | 2022-12-10 14:14 | MHPN_ITS ---
Date of service: 12/10/22 Time of Service: 12:00 Mental Health Emergency Note Release [facility] release signed:: Yes Reason for Visit Client presented to [facility] via ambulance after intetional overdose on 12.09. This client is known [facility] ([facility]) prior to 12.09; however is an inactive client. Per DAWNA Kenny report, Per Dr. Olson , client attempted to initially overdose on poured all of my pills in one or two bottles and them took them. This sign writer hand met with client in-person for F2F daily reassessment, while client awaits voluntarily placement for IP MH TX. In the last 2 weeks has the pt presented for ES prior to today?: No Client Information Client is: New (Client is known to [facility]; however, is inactive and not currently engaged in services.) Well Housed: Yes Non Suicidal Self Injury Current: No History: yes, Client denies currently endorsing NSSI. Client denies plan/intent. Client reports past hx of NSSIBs such as: heading banging; client reports last engaging in head banging yesterday. Safety Risk/Harm to Self or Others Current Ideation to Harm Self or Others: Yes to self. (Client denies currently endorsing SI. However, client reports last having fleeting thoughts of SI last evening. Client reports level of intent is 5/10 to act on her thoughts of SI. Client denies plan.) Intent: yes, has intent. Plan: no.does not have a plan. History of suicide attempt: yes,history of suicide attempt reported. Details of previous suicide attempt: Client reports 9 prior suicide attempts, including today's attempt. Client reports that she intentionally overdosed after it all became too much. Client reports her first attempt dates back to her being 14 yrs of age. Client declined to provide any further information, regarding past attempts. Risk: Does risk to harm exist?: yes. Access to means: No. Risk: High Risk (Currently client presents as a high risk to herself. If client were attempt to leave hospital AMA, please notify [facility]ZA[facility].) Duty to warn indicated: No Asssessment/Mental Status Appearance: Unremarkable (Client presents in hospital gown, client refuses to change into paper scrubs.) Attitude: Guarded (Client was selective in the information she would provide to this sign writer hand.) Behavior: Unremarkable Speech: Normal Affect: Cogruent with mood Mood: Sad, Depressed and Irritable Thought process: Unremarkable Hallucinations: No evidence Delusions: No evidence Attention: Unremarkable Perception: Not impaired Orientation: Fully orientated Memory: Intact Insight: Poor Judgement: Poor Neurovegetative Symptoms Sleep: Decrease Appetitie: Decrease Interests: Decrease Energy: Decrease Libido: Not applicable Impression Client is a 22 year old single female. Client currently resides in her home with her 2 1/2 year old son and her roommate. Client reports significant mental health history, prior attempts, prior hospitalizations, and major trauma history, Client is observed to be laying down in hospital gown in hospital bed, on med surge floor, room 229. Client is observed to be depressed evidenced by self report but is alert and orientated x4. Client makes direct eye contact and speaks clear, concise, tones and maintains throughout the assessment. Client reports that she recent has a lot of medical diagnosis recently. Client reports 9 prior attempts including today's attempt. Client reports that she intentionally overdosed after it all became too much. Client reports that she wants inpatient treatment. Based on today assessment and client's self report of SI/NSSI, this sign writer hand concludes that client is a patient in need of mental health treatment. Client will await inpatient hospitalization from [facility]. Client awaits hospitalization voluntarily and will need daily reassessment. Plan/Disposition Recommended Disposition: Hospitalization facilities contacted. Plan: Client is currently awaiting placement for IP MH TX. Client will remain at [facility] until placement is secured. If client attempts to leave AMA please notify [facility], for EE application to be considered. Person reported agreement to plan: Yes Facilities contacted if Applicable [facility] (Pending Review) Not accepted, (Pending review) Other [facility] (Pending Review) Not accepted, (Pending Review) Other [facility] (Pending Review) Not accepted, (Pending Review) [facility] Not accepted, (Pending Review) Other Reports/communication Outcome discussed with: ED/Personnel (Tipple Tender Blessing Coleman to inform assigned CM Jillian of current plan in place.)
--- NOTE | 2022-12-10 14:36 | W.PM.PROGNOT ---
Date of Service Date of service: 12/10/22 Time of Service: 14:36 Assessment and Plan Assessment and plan (1) Suicide attempt by drug overdose: Assessment and plan: Polydrug OD with possible intent to harm. cleared medically and awaiting an inpatient psychiatric bed, voluntary status. she was given her cellphone back last night, apparently after threatening to jump out the window if she didn't get it. she also was not in paper scrubs for some unknown reason, both are against safety plan and policy so when enforced today she was very argumentative, angry and non compliant initially but ultimately threw her phone towards staff. no one was struck, it is unclear if she intentionally wanted to hit someone. we have agreed to keep her in hospital gown while pending transfer unless this poses an issue with administration or mental health. mental health following and referrals have been sent and are pending. discussed with DR Munoz. Subjective Subjective Interval history since last seen: patient with behavioral disturbances regarding compliance with safety policy and plan. Exam Const General: cooperative, healthy appearing and no acute distress Nutritional Appearance: overweight Orientation: alert, awake and oriented x3 HENMT Head: normal to inspection, normocephalic and atraumatic Mouth: oral mucosae normal Chest Chest: normal inspection of the chest Resp Effort & Inspection: normal respiratory effort and able to speak in complete sentences Cardio Other: pink dry and well perfused GI Inspection: normal to inspection Skin General skin exam: no rashes or lesions noted Neuro General: patient alert, patient awake and patient oriented x3 Cognition: normal cognition Extrem General: normal to inspection and full ROM Psych Appearance: grossly normal Mental Status: mental status grossly normal Speech and Movement: agitated Mood: angry and irritable mood Affect: labile affect Attitude: belligerent Thought Process: perseverating (argumentative) Thought Content: normal Insight: limited Judgment: poor Objective Last Vital Signs Temp 37.1 C 12/10/22 07:00 Pulse 85 12/10/22 07:00 Resp 16 12/10/22 07:00 BP 106/65 12/10/22 07:00 Pulse Ox 100 12/10/22 07:00 Laboratory Results - last 24 hr 12/09/22 12/09/22 12/09/22 14:21 14:21 14:21 WBC 9.05 RBC 5.31 H Hgb 15.9 H Hct 46.6 H MCV 88 MCH 29.9 MCHC 34.1 RDW 12.0 Plt Count 285 MPV 9.0 Immature Gran % 0.7 Neutrophils % 81.0 Lymphocytes % 11.6 Monocytes % 5.5 Eosinophils % 0.9 Basophils % 0.3 Nucleated RBC % 0.0 Absolute Neutrophils 7.33 H Absolute Lymphocytes 1.05 L Absolute Monocytes 0.50 Absolute Eosinophils 0.08 Absolute Basophils 0.03 Sodium 143 Potassium 3.9 Chloride 105 Carbon Dioxide 24.1 Anion Gap 13.9 H BUN 9 Creatinine 1.1 H Est GFR (CKD-EPI 2020) 71.96 Glucose 88 Calcium 10.2 H Magnesium 2.3 Total Bilirubin 1.0 AST 18 ALT 26 Alkaline Phosphatase 74 Creatine Kinase Troponin I < 50 Total Protein 9.5 H Albumin 5.2 H Serum HCG, Qual Urine Color Urine Clarity Urine pH Ur Specific [place] Urine Protein Urine Ketones Urine Blood Urine Nitrite Urine Bilirubin Urine Urobilinogen Ur Leukocyte Esterase Urine RBC Urine WBC Ur Epithelial Cells Urine Crystals Urine Bacteria Urine Casts Urine Mucus Urine Other Ur Culture Indicated? Urine Glucose Salicylates < 2.8 Urine Opiates Screen Urine Methadone Screen Acetaminophen < 2 Ur Barbiturates Screen Ur Tricyclics Screen Ur Amphetamines Screen U Benzodiazepines Scrn Urine Cocaine Screen Ur THC Screen Ethyl Alcohol < 3.0 12/09/22 12/09/22 12/09/22 14:21 14:21 18:25 WBC RBC Hgb Hct MCV MCH MCHC RDW Plt Count MPV Immature Gran % Neutrophils % Lymphocytes % Monocytes % Eosinophils % Basophils % Nucleated RBC % Absolute Neutrophils Absolute Lymphocytes Absolute Monocytes Absolute Eosinophils Absolute Basophils Sodium Potassium Chloride Carbon Dioxide Anion Gap BUN Creatinine Est GFR (CKD-EPI 2020) Glucose Calcium Magnesium Total Bilirubin AST ALT Alkaline Phosphatase Creatine Kinase 62 Troponin I Total Protein Albumin Serum HCG, Qual Negative Urine Color Urine Clarity Urine pH Ur Specific [place] Urine Protein Urine Ketones Urine Blood Urine Nitrite Urine Bilirubin Urine Urobilinogen Ur Leukocyte Esterase Urine RBC Urine WBC Ur Epithelial Cells Urine Crystals Urine Bacteria Urine Casts Urine Mucus Urine Other Ur Culture Indicated? Urine Glucose Salicylates Urine Opiates Screen Urine Methadone Screen Acetaminophen < 2 Ur Barbiturates Screen Ur Tricyclics Screen Ur Amphetamines Screen U Benzodiazepines Scrn Urine Cocaine Screen Ur THC Screen Ethyl Alcohol 12/10/22 12/10/22 12:40 12:40 WBC RBC Hgb Hct MCV MCH MCHC RDW Plt Count MPV Immature Gran % Neutrophils % Lymphocytes % Monocytes % Eosinophils % Basophils % Nucleated RBC % Absolute Neutrophils Absolute Lymphocytes Absolute Monocytes Absolute Eosinophils Absolute Basophils Sodium Potassium Chloride Carbon Dioxide Anion Gap BUN Creatinine Est GFR (CKD-EPI 2020) Glucose Calcium Magnesium Total Bilirubin AST ALT Alkaline Phosphatase Creatine Kinase Troponin I Total Protein Albumin Serum HCG, Qual Urine Color Yellow Urine Clarity Clear Urine pH 5.5 Ur Specific [place] >= 1.030 H Urine Protein Trace H Urine Ketones 15 H Urine Blood Negative Urine Nitrite Negative Urine Bilirubin Negative Urine Urobilinogen 0.2 Ur Leukocyte Esterase Negative Urine RBC Negative Urine WBC 3-5 Ur Epithelial Cells Few Urine Crystals Negative Urine Bacteria Moderate Urine Casts Negative Urine Mucus Trace Urine Other Negative Ur Culture Indicated? Yes Urine Glucose Negative Salicylates Urine Opiates Screen Negative Urine Methadone Screen Negative Acetaminophen Ur Barbiturates Screen Negative Ur Tricyclics Screen Positive A Ur Amphetamines Screen Negative U Benzodiazepines Scrn Negative Urine Cocaine Screen Negative Ur THC Screen Positive A Ethyl Alcohol Time Spent with Patient Time Spent with Patient: 35-49 minutes Time was spent: preparing to see the patient(eg.review tests), obtaining and/or reviewing separately otained hiistory, referring, communicating with other health child care nurse, counseling the patient and care coordination
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
--- NOTE | 2022-12-10 15:11 | PDOC.CMDIS ---
- If Service Date Differs Date of service: 12/10/22 Time of Service: 15:11 LACE Index Scoring Tool - Questions: Length of Stay (in days): 1 Acuity (Admit via E.D.?): Yes E.D. Visits: 7 - Answers: Total Score: 8 Risk of Readmission: Low Risk Care Management Discharge Reason for Hospitalization: Drug OD, awaiting voluntary inpatient treatment Discharge Plan: Juliana left [facility] at 1501. Prior to exiting the building Juliana advises that she is not staying at [facility] a second longer and her plan is to call a friend to bring her to [place]. CM notified Niurka from [facility] by phone at [phone]. Patient/Family Education Needs: Review implications to leaving [place].
[2022-12-11 19:24] LABS: Lab Add On Test DONE
[2022-12-11 20:04] LABS: T4 8.3 ug/dL (4.7-13.3); TSH 0.74 uIU/mL (0.36-3.74)
[2022-12-12 11:20] LABS: Lamotrigine 0.7 mcg/mL (3.0-15.0)
[2022-12-12 13:49] LABS: Levetiracetam 2.4 mcg/mL
[2022-12-12 18:28] LABS: Prolactin 6.2 ng/mL (See Note)
== END 2022-12-10 15:00 | disposition left against medical advice (07) ==
LOC: ER 23:40 → MS 23:42
PROVIDERS: Emergency Medicine; Internal Medicine; Admitting Provider General Practice; Emergency Provider Physician Assistant; PCP Student in an Organized Health Care Education/Training Program; Visit Provider General Practice
DX: T50.902A Poisoning by unspecified drugs, medicaments and biological substances, intentional self-harm, initial encounter (principal); T43.3X2A Poisoning by phenothiazine antipsychotics and neuroleptics, intentional self-harm, initial encounter; T48.1X2A Poisoning by skeletal muscle relaxants [neuromuscular blocking agents], intentional self-harm, initial encounter; N17.9 Acute kidney failure, unspecified; H57.04 Mydriasis; W22.01XA Walked into wall, initial encounter; E83.52 Hypercalcemia; D35.2 Benign neoplasm of pituitary gland; F43.10 Post-traumatic stress disorder, unspecified; G90.A Postural orthostatic tachycardia syndrome [POTS]; K76.0 Fatty (change of) liver, not elsewhere classified; S00.83XA Contusion of other part of head, initial encounter; M25.511 Pain in right shoulder
CPT/HCPCS: 80053; 80175; 80307; 82550; 93005; 96360; 96361; 99285; 70450; 73030; 80177; 80320; 80329; 81003; 81015; 83735; 84146; 84436; 84443; 84484; 84703; 85025; 87086; 93010; 99221; 99238; G0378

== ENCOUNTER 2023-01-01 02:20 | Outpatient (RCR) | payer MEDICAID, SELFPAY ==
[2022-12-10 00:23] VITALS: BP 104/70; PULSE 74
[2022-12-18 07:37] VITALS: BP 98/66; PULSE 79; RESP 18; TEMP 36.5; O2SAT 98
[2022-12-18] MEDS: Normal Saline 1,000 ML 500 ML IV (07:42)
[2022-12-18 07:54] LABS: HGB 13.3 g/dL (11.2-15.7)
[2022-12-18 08:19] LABS: BUN 11 mg/dL (7-18); CREATININE 0.7 mg/dL (0.55-1.02); Chloride 105 mmol/L (98-107); Estimated GFR 123.78 (mL/min/1.73m2); Glucose 92 mg/dL (74-106); Sodium 139 mmol/L (136-145); TSH (W/Ref FT4) 0.88 uIU/mL (0.36-3.74)
[2022-12-18 08:33] LABS: Vitamin D 25 Total 27.7 ng/mL (30-100)
[2022-12-18 19:47] LABS: FSH 6.6 mIU/mL (See Note); LH 6.4 mIU/mL (See Note); Prolactin 9.1 ng/mL (See Note)
[2022-12-19 18:14] LABS: Adrenocorticotropic Hormone, P 10 pg/mL
[2022-12-28] MEDS: Normal Saline Flush 10 ML SYR IVP (11:09)
[2022-12-28] MEDS: Normal Saline 1,000 ML 500 ML IV (11:09)
[2022-12-28 11:13] VITALS: BP 106/67
== END 2023-01-09 23:59 | disposition home or self-care (01) ==
LOC: INF 02:20
PROVIDERS: PCP Student in an Organized Health Care Education/Training Program; Visit Provider Student in an Organized Health Care Education/Training Program
DX: I49.8 Other specified cardiac arrhythmias (principal); E86.0 Dehydration
CPT/HCPCS: 36415; 80048; 82306; 82533; 83519; 96360; 96361; 96365; 96366; 82024; 83001; 83002; 84146; 84443; 85018

== ENCOUNTER 2023-01-22 09:13 | Emergency (ER) | payer MEDICAID, SELFPAY ==
[2023-01-22] VITALS (14 sets, daily range): BP systolic 82–125; BP diastolic 60–86; PULSE 53–97; RESP 11–24; TEMP 36.8; O2SAT 81–100
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
[2023-01-22] MEDS: LORazepam 2 MG/ML VIAL IVP (09:36)
[2023-01-22] MEDS: Normal Saline 1,000 ML 1000 ML IV (09:37)
[2023-01-22 09:50] LABS: Abs Immature Grans 0.04 10^3/uL (0.0-0.06); Absolute Basophil Count 0.04 10^3/uL (0.0-0.2); Absolute Eosinophil Count 0.28 10^3/uL (0.0-0.7); Absolute Monocyte Count 0.48 10^3/uL (0.1-0.8); Absolute Neutrophil Count 3.73 10^3/uL (1.2-6.7); Basophils % 0.5; Eosinophils % 3.8; HCT 41.4 % (36.0-46.0); HGB 14.6 g/dL (11.2-15.7); Immature Grans % 0.5; MCH 30.8 pg (27.0-33.0); MCHC 35.3 % (32.0-36.0); MCV 87 fL (80-95); MPV 8.7 fL (8.0-11.0); Monocytes % 6.5; Neutrophils % 50.7; Platelet Count 284 10^3/uL (130-400); RBC 4.74 10^6/uL (3.93-5.22); RDW 11.9 % (11.7-14.6); RDW-SD 38.6 fL; WBC 7.37 10^3/uL (4.4-10.8)
[2023-01-22 10:05] LABS: ALT 22 U/L (14-59); AST 13 U/L (15-37); Albumin 4.1 g/dL (3.4-5.0); Alkaline Phosphatase 65 U/L (46-116); Anion Gap 9.4 mmol/L (3-11); BUN 9 mg/dL (7-18); Bilirubin, Total 0.7 mg/dL (0.2-1.0); CO2 22.6 mmol/L (21.0-32.0); CREATININE 0.9 mg/dL (0.55-1.02); Chloride 105 mmol/L (98-107); Estimated GFR 91.55 (mL/min/1.73m2); Glucose 91 mg/dL (74-106); Potassium 3.4 mmol/L (3.5-5.1); Sodium 137 mmol/L (136-145); Total Protein 7.8 g/dL (6.4-8.2)
[2023-01-22 10:07] LABS: ETHANOL BLOOD < 3.0 mg/dL (<10)
[2023-01-22 12:12] LABS: *AMPHETAMINES SCREEN URINE Negative (Negative); *BARBITURATES SCREEN URINE Negative (Negative); *BENZODIAZEPINES SCREEN URINE Negative (Negative); Cannabinoids THC Positive (Negative); Cocaine Screen,Urine Negative (Negative); METHADONE URINE SCREEN Negative (Negative); OPIATES URINE SCREEN Negative (Negative); Tricyclic Antidepressants Negative (Negative)
== END 2023-01-22 13:14 | disposition home or self-care (01) ==
PROVIDERS: Emergency Provider Emergency Medicine; PCP Student in an Organized Health Care Education/Training Program
DX: R56.9 Unspecified convulsions (principal)
CPT/HCPCS: 36415; 80053; 80307; 81025; 96361; 96374; 99284; 80320; 85025; J2060

== ENCOUNTER 2023-01-29 10:03 | Emergency (ER) | payer MEDICAID, SELFPAY ==
[2023-01-29] VITALS (78 sets, daily range): BP systolic 93–142; BP diastolic 46–129; PULSE 61–146; RESP 9–44; TEMP 36.8; O2SAT 28–100
--- NOTE | 2023-01-29 10:00 | DI.CT_ITS ---
Exam(s) CT HEAD WO EXAM: CT HEAD WO CLINICAL HISTORY: Acute encephalopathy. TECHNIQUE: Imaging Protocol: Axial computed tomography images with coronal and sagittal reformatted images were created and reviewed COMPARISON: CT CT HEAD WO from 12/09/2022 FINDINGS: Ventricles and Extra axial spaces: Normal in size and morphology for the patient's age. Hemorrhage: None. Cerebral parenchyma: Normal. Midline shift: None. Brainstem/Cerebellum: Normal. Calvarium: Normal. Visualized Paranasal sinuses/Mastoids: There is again seen complete opacification of the left maxilla ry sinus the remaining visualized paranasal sinuses are clear. Soft Tissues: Unremarkable. IMPRESSION: 1. No acute intracranial process. 2. Findings were discussed with the emergency department at 11:21 a.m. on 01/29/2023. RADIATION DOSE DELIVERED: 1,350.69mGy.cm Total DLP DATA REPOSITORY: All CT scans at this facility are submitted to the National Radiology Data Registry (NRDR) Dose Index Registry (DIR) with the [employer] (A[employer]). RADIATION OPTIMIZATION: All CT scans at this facility use at least one of these dose optimization te chniques: automated exposure control; mA and/or kV adjustment per patient size (includes targeted exa ms where dose is matched to clinical indication); or iterative reconstruction.
--- NOTE | 2023-01-29 10:00 | RT.EKG_ITS ---
APPROVED REPORT Exam: Resting ECG Reason for Exam: seizure Patient Location: E HR:112 bpm ECG Measurements Heart Rate 112 AXIS NM 155 P 55 QRSd 76 QRS 37 QT 334 T -2 QTc 458 Conclusion Sinus tachycardia...rate> 99 Narrow complex sinus tachycardia at a rate of 112. Normal axis. Intervals within normal limits. No ST segment elevations. No T wave inversions. No acute injury pattern. Appears similar to prior. Prior dated last month.
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
--- NOTE | 2023-01-29 10:14 | DI.RAD_ITS ---
Exam(s) XR CHEST 1V IN DI DEPT EXAM: XR CHEST 1V IN DI DEPT CLINICAL HISTORY: Convulsions TECHNIQUE: 2D digital imaging was performed of the chest. One image was obtained. An AP view was ob tained. COMPARISON: CR XR CHEST 2V PA LATERAL from 02/22/2022 FINDINGS: MEDIASTINUM: Normal. HEART: Normal. PULMONARY VASCULATURE: Normal. LUNGS: Clear. PLEURAL SPACE: No pleural effusion or pneumothorax. BONE:Within normal limits for the patient's age. OTHER FINDINGS:Normal. IMPRESSION: No acute pulmonary findings. DATA REPOSITORY: RADIATION DOSE DELIVERED:
[2023-01-29 10:48] LABS: Abs Immature Grans 0.33 10^3/uL (0.0-0.06); Absolute Basophil Count 0.08 10^3/uL (0.0-0.2); Absolute Eosinophil Count 0.06 10^3/uL (0.0-0.7); Absolute Lymphocyte Count 0.97 10^3/uL (1.2-3.4); Absolute Monocyte Count 0.39 10^3/uL (0.1-0.8); Absolute Neutrophil Count 14.33 10^3/uL (1.2-6.7); Basophils % 0.5; Eosinophils % 0.4; HCT 47.8 % (36.0-46.0); HGB 15.9 g/dL (11.2-15.7); MCH 30.2 pg (27.0-33.0); MCHC 33.3 % (32.0-36.0); MCV 91 fL (80-95); Monocytes % 2.4; Neutrophils % 88.7; Platelet Count 284 10^3/uL (130-400); RBC 5.26 10^6/uL (3.93-5.22); RDW 12.1 % (11.7-14.6); RDW-SD 40.4 fL; WBC 16.15 10^3/uL (4.4-10.8)
[2023-01-29 10:49] LABS: BE (Venous) -14 mmol/L (-2-3); HCO3 (Venous) 14 mmol/L (23-28); O2 Sat (Venous) 62 %; TCO2 (Venous) 13 mmol/L (24-29); pCO2 (Venous) 36 mmHg (41-51); pH (Venous) 7.21 (7.31-7.41); pO2 (Venous) 38 mmHg
[2023-01-29] MEDS: Ondansetron 4 MG/2 ML VIAL IVP (10:50)
--- NOTE | 2023-01-29 11:12 | NUR.NOTE ---
When returning from CT and xray pt began to moan loudly and had right arm extension and left leg extension. When assessing eyes pt followed this nurse with her eyes. MD to the bedside, oxygen dropped, suction was used, NRB at 15L was utilized for 45 seconds, oxygen returned to baseline. VSS throughout the interaction.
[2023-01-29 11:13] LABS: ALT 18 U/L (14-59); AST 11 U/L (15-37); Albumin 4.9 g/dL (3.4-5.0); Alkaline Phosphatase 80 U/L (46-116); Anion Gap 21.5 mmol/L (3-11); BUN 6 mg/dL (7-18); Bilirubin, Total 0.3 mg/dL (0.2-1.0); CO2 16.5 mmol/L (21.0-32.0); CREATININE 1.3 mg/dL (0.55-1.02); Calcium 9.2 mg/dL (8.5-10.1); Chloride 104 mmol/L (98-107); Estimated GFR 58.89 (mL/min/1.73m2); Glucose 138 mg/dL (74-106); Potassium 4.2 mmol/L (3.5-5.1); Sodium 142 mmol/L (136-145); Total Protein 9.4 g/dL (6.4-8.2)
[2023-01-29 11:15] LABS: HCG Qual (Serum) Negative
[2023-01-29] MEDS: Normal Saline 1,000 ML 1000 ML IV ×2 (11:19→12:50)
[2023-01-29 11:20] LABS: Salicylate 3.4 mg/dL (<2.8)
[2023-01-29 11:24] LABS: Acetaminophen < 2 ug/mL (10-30)
[2023-01-29 11:26] LABS: COVID-19 PCR Negative (Negative); Influenza A PCR Negative (Negative); Influenza B PCR Negative (Negative); RSV PCR Negative (Negative)
[2023-01-29 11:39] LABS: Creatine Kinase 90 U/L (26-192); Magnesium 2.7 mg/dL (1.8-2.4); TSH (W/Ref FT4) 0.58 uIU/mL (0.36-3.74)
[2023-01-29 11:41] LABS: ETHANOL BLOOD < 3.0 mg/dL (<10)
[2023-01-29 11:42] LABS: Troponin I < 50 ng/L (<or=60)
[2023-01-29] MEDS: Droperidol 5 MG/2 ML VIAL 1.25 MG IVP (12:50)
[2023-01-29 12:55] LABS: Bilirubin Negative (Negative); Blood Small (Negative); Clarity Clear (Clear); Glucose Negative (Negative); Ketones 15 mg/dL (Negative); Leukocyte Esterase Negative (Negative); Nitrite Negative (Negative); Urobilinogen 0.2 mg/dL (Up to 0.2)
[2023-01-29 13:08] LABS: Bacteria Rare HPF (Negative); Crystals Negative HPF (Negative); Epithelial Cells Many HPF (Negative); Mucus Moderate (Negative); WBC 0-2 HPF (0-5)
[2023-01-29 13:09] LABS: *AMPHETAMINES SCREEN URINE Negative (Negative); *BARBITURATES SCREEN URINE Negative (Negative); *BENZODIAZEPINES SCREEN URINE Negative (Negative); C & S Indicated? No; Cannabinoids THC Positive (Negative); Casts 3-5 Fine Granular LPF (Negative); Cocaine Screen,Urine Negative (Negative); METHADONE URINE SCREEN Negative (Negative); OPIATES URINE SCREEN Negative (Negative)
[2023-01-29 13:10] LABS: Tricyclic Antidepressants Negative (Negative)
[2023-01-29 13:45] LABS: Troponin I < 50 ng/L (<or=60)
[2023-01-29 13:51] LABS: Salicylate 2.9 mg/dL (<2.8)
== END 2023-01-29 14:38 ==
LOC: ER 11:57
PROVIDERS: Emergency Provider Emergency Medicine; PCP Student in an Organized Health Care Education/Training Program
DX: R56.9 Unspecified convulsions (principal); G93.40 Encephalopathy, unspecified; N17.9 Acute kidney failure, unspecified; R09.02 Hypoxemia; Z20.822 Contact with and (suspected) exposure to COVID-19; R11.10 Vomiting, unspecified; E87.20 Acidosis, unspecified
CPT/HCPCS: 36415; 80048; 80053; 80307; 82550; 82805; 87637; 93005; 96361; 96374; 96375; 99285; 70450; 71045; 80320; 80329; 81003; 81015; 83735; 84443; 84484; 84703; 85025; 93010; J1790; J2405

== ENCOUNTER 2023-02-12 09:29 | Emergency (ER) | payer MEDICAID, SELFPAY ==
[2023-02-12] VITALS (82 sets, daily range): BP systolic 82–113; BP diastolic 37–74; PULSE 44–147; RESP 10–25; TEMP 36.6; O2SAT 98–100
--- NOTE | 2023-02-12 09:30 | DI.CT_ITS ---
Exam(s) CT THORACIC LUMBAR SPINE WO CT CHEST/ABD/PEL W EXAM: CT CHEST/ABD/PEL W CLINICAL HISTORY: trauma, fall down stairs, altered. TECHNIQUE: Imaging Protocol: Axial computed tomography images with coronal and sagittal reformatted images were created and reviewed Axial, sagittal and coronal images of the thoracic and lumbar spine were reconstructed from the chest abdomen pelvic CT using bone algorithm. CONTRAST MATERIAL: Intravenous: Omnipaque 350 Contrast volume:100 ml Oral: no COMPARISON: CT CT ABDOMEN PELVIS W from 08/30/2021 CR,XR XR PELVIS AP from 02/12/2023 CR,XR XR FEMUR RT from 02/12/[address] THORACIC LUMBAR SPINE WO from 02/12/2023 FINDINGS: There is streak artifact related to patient arm position. CHEST: Tracheobronchial tree: Patent where visualized. Pulmonary parenchyma: Limited evaluation due to expiratory changes. No consolidation or dominant rylie surable mass. Pleura: No effusion or pneumothorax. Lymph nodes: Within normal limits. Aorta: Thoracic portion non-dilated. Heart: Normal size. Bones: Unremarkable for age. No lytic or blastic lesions.No compression fractures. ABDOMEN: Liver: Normal density. No measurable mass. Gallbladder and biliary tract: No radiodense calculus or dilation. Pancreas: Normal density, no abnormal calcifications or inflammatory process. Spleen: Normal. Kidneys: Normal size, contour and axis. No radiodense stones or obstructive uropathy. No suspicious m asses seen. Adrenal glands: No masses seen. Aorta: Abdominal portion non-dilated. Lymph nodes: Within normal limits. Soft tissues: Unremarkable. PELVIS: Bladder: Symmetric distention, no gross wall thickening. Bowel: No obstruction or bowel wall thickening. Peritoneal cavity: No ascites, collection or mesenteric inflammatory response. Bones: Unremarkable for age.. No evidence spine or pelvic fracture. The disc spaces are maintaine d. The alignment appears normal. Reproductive organs: Within normal limits. IMPRESSION: No acute abnormality in the chest, abdomen or pelvis.. No thoracic or lumbar spine fractures. RADIATION DOSE DELIVERED: 1625.56 mGy.cm Total DLP DATA REPOSITORY: All CT scans at this facility are submitted to the National Radiology Data Registry (NRDR) Dose Index Registry (DIR) with the [employer] (A[employer]). RADIATION OPTIMIZATION: All CT scans at this facility use at least one of these dose optimization te chniques: automated exposure control; mA and/or kV adjustment per patient size (includes targeted exa ms where dose is matched to clinical indication); or iterative reconstruction.
--- NOTE | 2023-02-12 09:30 | RT.EKG_ITS ---
APPROVED REPORT Exam: Resting ECG Reason for Exam: seizure activity, altered Patient Location: E HR:54 bpm ECG Measurements Heart Rate 54 AXIS CO 156 P 60 QRSd 92 QRS 50 QT 411 T 52 QTc 391 Conclusion Slow sinus arrhythmia...V-rate 43- 66, mean< 60
--- NOTE | 2023-02-12 09:30 | DI.CT_ITS ---
Exam(s) CT HEAD CERVICAL SPINE WO EXAM: CT HEAD CERVICAL SPINE WO CLINICAL HISTORY: trauma, fall down stairs, altered. TECHNIQUE: Imaging Protocol: Axial computed tomography images with coronal and sagittal reformatted images were created and reviewed COMPARISON: CT CT HEAD WO from 01/29/2023 FINDINGS: Head CT Ventricles and Extra axial spaces: Normal in size and morphology for the patient's age. Hemorrhage: None. Cerebral parenchyma: Normal. Midline shift: None. Brainstem/Cerebellum: Normal. Calvarium: Normal. Visualized Paranasal sinuses/Mastoids: Large amount mucous retention left maxillary sinus. Cervical Spine CT BONES: Vertebral body heights are maintained. Alignment is normal. There is no evidence of acute frac ture. SOFT TISSUES: No paraspinal hematoma. The airway appears intact. No pneumothorax is seen at the lung apices. IMPRESSION: Head CT: No acute abnormality. C-spine CT: no acute abnormality. RADIATION DOSE DELIVERED: 1,420.66mGy.cm Total DLP DATA REPOSITORY: All CT scans at this facility are submitted to the National Radiology Data Registry (NRDR) Dose Index Registry (DIR) with the [employer] (ACR). RADIATION OPTIMIZATION: All CT scans at this facility use at least one of these dose optimization te chniques: automated exposure control; mA and/or kV adjustment per patient size (includes targeted exa ms where dose is matched to clinical indication); or iterative reconstruction.
--- NOTE | 2023-02-12 09:32 | RESPIRATORY ---
Respiratory Therapy present on emergency stand-by for arrival of unresponsive patient. Patient Sp02 98% on room airl. Airway patent and protected. Nothing further needed at this time.
[2023-02-12] MEDS: Omnipaque 350 MG/ML 100 ML BTL IJ (09:42)
[2023-02-12] MEDS: Normal Saline - Diluent 50 ML VIAL IJ (09:42)
[2023-02-12 09:43] LABS: Abs Immature Grans 0.03 10^3/uL (0.0-0.06); Absolute Basophil Count 0.03 10^3/uL (0.0-0.2); Absolute Eosinophil Count 0.22 10^3/uL (0.0-0.7); Absolute Monocyte Count 0.35 10^3/uL (0.1-0.8); Basophils % 0.6; Eosinophils % 4.8; HCT 39.7 % (36.0-46.0); HGB 13.5 g/dL (11.2-15.7); Immature Grans % 0.6; Lymphocytes % 23.8; MCH 30.3 pg (27.0-33.0); MCV 89 fL (80-95); MPV 9.1 fL (8.0-11.0); Monocytes % 7.6; Neutrophils % 62.6; Platelet Count 196 10^3/uL (130-400); RBC 4.46 10^6/uL (3.93-5.22); RDW 12.1 % (11.7-14.6); RDW-SD 39.7 fL; WBC 4.63 10^3/uL (4.4-10.8)
[2023-02-12 09:57] LABS: ALT 20 U/L (14-59); AST 14 U/L (15-37); Albumin 3.9 g/dL (3.4-5.0); Alkaline Phosphatase 58 U/L (46-116); BUN 7 mg/dL (7-18); Bilirubin, Total 0.6 mg/dL (0.2-1.0); CREATININE 0.8 mg/dL (0.55-1.02); Calcium 8.8 mg/dL (8.5-10.1); Chloride 106 mmol/L (98-107); ETHANOL BLOOD < 3.0 mg/dL (<10); Estimated GFR 105.45 (mL/min/1.73m2); Glucose 94 mg/dL (74-106); Potassium 3.4 mmol/L (3.5-5.1); Sodium 140 mmol/L (136-145); Total Protein 7.1 g/dL (6.4-8.2); Troponin I < 50 ng/L (<or=60)
--- NOTE | 2023-02-12 10:11 | DI.VRAD_ITS ---
PROCEDURE INFORMATION: Exam: CT Head Without Contrast Exam date and time: 02/12/2023 9:38 AM Age: 22 years old Clinical indication: Other: Trauma, fall down stairs, altered TECHNIQUE: Imaging protocol: Computed tomography of the head without contrast. Radiation optimization: All CT scans at this facility use at least one of these dose optimization techniques: automated exposure control; mA and/or kV adjustment per patient size (includes targeted exams where dose is matched to clinical indication); or iterative reconstruction. COMPARISON: CT HEAD WO 01/29/2023 10:47 AM FINDINGS: Brain: Normal. No hemorrhage. Unremarkable white matter. No mass effect. Cerebral ventricles: No ventriculomegaly. Paranasal sinuses: Fluid in both maxillary sinuses, left more than right. Remaining paranasal sinuses are well aerated. Mastoid air cells: Visualized mastoid air cells are well aerated. Bones/joints: Unremarkable. No acute fracture. Soft tissues: Unremarkable. IMPRESSION: No acute intracranial pathology. Bilateral maxillary sinus disease, left more than right. PROCEDURE INFORMATION: Exam: CT Cervical Spine Without Contrast Exam date and time: 02/12/2023 9:38 AM Age: 22 years old Clinical indication: Other: Trauma, fall down stairs, altered TECHNIQUE: Imaging protocol: Computed tomography of the cervical spine without contrast. Radiation optimization: All CT scans at this facility use at least one of these dose optimization techniques: automated exposure control; mA and/or kV adjustment per patient size (includes targeted exams where dose is matched to clinical indication); or iterative reconstruction. COMPARISON: CT HEAD WO 01/29/2023 10:47 AM FINDINGS: Bones/joints: No acute fracture. Normal alignment. Straightening of the normal cervical lordosis. No significant disc bulge or herniation. No severe spinal canal stenosis. No significant neural foraminal narrowing. Lungs: Lung apices are normal. Soft tissues: Unremarkable. IMPRESSION: No acute findings. Dictated and Authenticated by: Christian Angeles MD. Ordering:GENE Menard MD
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
--- NOTE | 2023-02-12 10:45 | DI.VRAD_ITS ---
PROCEDURE INFORMATION: Exam: CT Chest With Contrast; Diagnostic Exam date and time: 02/12/2023 9:48 AM Age: 22 years old Clinical indication: Other: Trauma, fall down stairs, altered TECHNIQUE: Imaging protocol: Diagnostic computed tomography of the chest with contrast. 3D rendering (Not supervised by radiologist): MIP and/or 3D reconstructed images were created by the technologist. Radiation optimization: All CT scans at this facility use at least one of these dose optimization techniques: automated exposure control; mA and/or kV adjustment per patient size (includes targeted exams where dose is matched to clinical indication); or iterative reconstruction. Contrast material: OMNIPAQUE 350; Contrast volume: 100 ml; Contrast route: INTRAVENOUS (IV); COMPARISON: CR XR CHEST 1V IN DI DEPT 01/29/2023 11:00 AM FINDINGS: Lungs: Unremarkable. No consolidation. No masses. Pleural spaces: Unremarkable. No pneumothorax. No pleural effusion. Heart: Unremarkable. No cardiomegaly. No pericardial effusion. Lymph nodes: Unremarkable. No enlarged lymph nodes. Vasculature: Unremarkable. No aortic aneurysm. Bones/joints: Unremarkable. No acute fracture. Soft tissues: Unremarkable. IMPRESSION: No acute findings. PROCEDURE INFORMATION: Exam: CT Abdomen And Pelvis With Contrast Exam date and time: 02/12/2023 9:48 AM Age: 22 years old Clinical indication: Other: Trauma, fall down stairs, altered TECHNIQUE: Imaging protocol: Computed tomography of the abdomen and pelvis with contrast. 3D rendering (Not supervised by radiologist): MIP and/or 3D reconstructed images were created by the technologist. Radiation optimization: All CT scans at this facility use at least one of these dose optimization techniques: automated exposure control; mA and/or kV adjustment per patient size (includes targeted exams where dose is matched to clinical indication); or iterative reconstruction. Contrast material: OMNIPAQUE 350; Contrast volume: 100 ml; Contrast route: INTRAVENOUS (IV); COMPARISON: CT ABDOMEN PELVIS W 08/30/2021 12:12 PM FINDINGS: Liver: Normal. No mass. Gallbladder and bile ducts: Normal. No calcified stones. No ductal dilation. Pancreas: Normal. No ductal dilation. Spleen: Normal. No splenomegaly. Adrenal glands: Normal. No mass. Kidneys and ureters: Normal. No hydronephrosis. Stomach and bowel: Unremarkable. No obstruction. No mucosal thickening. Appendix: The appendix is normal. Intraperitoneal space: Unremarkable. No free air. No significant fluid collection. Vasculature: Unremarkable. No abdominal aortic aneurysm. Lymph nodes: Unremarkable. No enlarged lymph nodes. Urinary bladder: Unremarkable as visualized. Reproductive: The uterus is normal. Bones/joints: Unremarkable. No acute fracture. Soft tissues: Unremarkable. IMPRESSION: No acute findings. Dictated and Authenticated by: Christian Angeles MD. Ordering:GENE Menard MD
--- NOTE | 2023-02-12 11:07 | DI.VRAD_ITS ---
PROCEDURE INFORMATION: Exam: CT Thoracic Spine Without Contrast Exam date and time: 02/12/2023 9:48 AM Age: 22 years old Clinical indication: Other: Trauma, fall down stairs TECHNIQUE: Imaging protocol: Computed tomography of the thoracic spine without contrast. Radiation optimization: All CT scans at this facility use at least one of these dose optimization techniques: automated exposure control; mA and/or kV adjustment per patient size (includes targeted exams where dose is matched to clinical indication); or iterative reconstruction. COMPARISON: CT HEAD CERVICAL SPINE WO 02/12/2023 9:38 AM FINDINGS: Bones/joints: No acute fracture. Normal alignment. No significant disc bulge or herniation. No severe spinal canal stenosis. No significant neural foraminal narrowing. Soft tissues: Unremarkable. IMPRESSION: Unremarkable CT Spine. PROCEDURE INFORMATION: Exam: CT Lumbar Spine Without Contrast Exam date and time: 02/12/2023 9:48 AM Age: 22 years old Clinical indication: Other: Trauma, fall down stairs TECHNIQUE: Imaging protocol: Computed tomography of the lumbar spine without contrast. Radiation optimization: All CT scans at this facility use at least one of these dose optimization techniques: automated exposure control; mA and/or kV adjustment per patient size (includes targeted exams where dose is matched to clinical indication); or iterative reconstruction. COMPARISON: CT ABDOMEN PELVIS W 08/30/2021 12:12 PM FINDINGS: Bones/joints: No acute fracture. Normal alignment. No significant disc bulge or herniation. No severe spinal canal stenosis. No significant neural foraminal narrowing. Soft tissues: Unremarkable. IMPRESSION: No acute findings. Dictated and Authenticated by: Christian Angeles MD. Ordering:GENE Menard MD
[2023-02-12 11:35] LABS: *AMPHETAMINES SCREEN URINE Negative (Negative); *BARBITURATES SCREEN URINE Negative (Negative); *BENZODIAZEPINES SCREEN URINE Positive (Negative); Cannabinoids THC Positive (Negative); Cocaine Screen,Urine Negative (Negative); METHADONE URINE SCREEN Negative (Negative); OPIATES URINE SCREEN Negative (Negative)
[2023-02-12 11:38] LABS: Tricyclic Antidepressants Negative (Negative)
--- NOTE | 2023-02-12 11:39 | NUR.NOTE ---
Nursing Note: Spoke with Amandeep, patients mother, (on HIPAA). Updated her regarding negative CT scans, patients vitals are stable and she is currently resting. Mom asked to give pt message that she is trying to reach her via cell phone. Attempted to let pt know, pt sleeping. Vitals stable.
[2023-02-12 12:17] LABS: Salicylate < 2.8 mg/dL (<2.8)
[2023-02-12 12:18] LABS: Acetaminophen < 2 ug/mL (10-30)
--- NOTE | 2023-02-12 12:55 | NUR.NOTE ---
Nursing Note: Woke patient to obtain signed consent. Patient laying in bed awake and speaking to mother on phone. Complaining of right leg pain 03/21. Provider aware.
--- NOTE | 2023-02-12 13:15 | DI.RAD_ITS ---
Exam(s) XR PELVIS AP XR FEMUR RT EXAM: XR PELVIS AP CLINICAL HISTORY: pain, fall down stairs. TECHNIQUE: 2D digital imaging was performed. COMPARISON: CR,XR XR FEMUR RT from 02/12/2023 FINDINGS: BONES: No acute fracture is present. No bony destructive lesion is seen. JOINTS: No dislocation present. No joint space narrowing is present. SOFT TISSUE: Normal. Contrast is noted within the urinary bladder related to the prior CT chest abd omen pelvis. IMPRESSION: Unremarkable radiographs of the pelvis and right femur.. DATA REPOSITORY: RADIATION DOSE DELIVERED:
[2023-02-12] MEDS: Ondansetron 4 MG/2 ML VIAL IVP (13:34)
--- NOTE | 2023-02-12 14:16 | DI.VRAD_ITS ---
PROCEDURE INFORMATION: Exam: XR Right Femur Exam date and time: 02/12/2023 1:57 PM Age: 22 years old Clinical indication: Injury or trauma; Fall; Blunt trauma; Hip and thigh or upper leg; Right; Injury date: 02/12/23 TECHNIQUE: Imaging protocol: Radiologic exam of the right femur. Views: 2 views. COMPARISON: CR XR PELVIS AP 02/12/2023 1:56 PM FINDINGS: Bones/joints: Unremarkable. No acute fracture. Soft tissues: Unremarkable. IMPRESSION: No acute findings. Dictated and Authenticated by: Ashvin Turk MD. Ordering:GENE Menard MD
--- NOTE | 2023-02-12 14:16 | DI.VRAD_ITS ---
PROCEDURE INFORMATION: Exam: XR Pelvis Exam date and time: 02/12/2023 1:56 PM Age: 22 years old Clinical indication: Injury or trauma; Other: Fall down stairs; Injury date: 02/12/23 TECHNIQUE: Imaging protocol: Radiologic exam of the pelvis. Views: 1 or 2 view. COMPARISON: CT CHEST/ABD/PEL W 02/12/2023 9:48 AM FINDINGS: Bones/joints: Unremarkable. No acute fracture. Soft tissues: Unremarkable. Dense contrast in the bladder IMPRESSION: No acute findings. Dictated and Authenticated by: Ashvin Turk MD. Ordering:GENE Menard MD
--- NOTE | 2023-02-12 14:25 | NUR.NOTE ---
Nursing Note: Pt went to xray for imaging. at approximately 1359, radiologist notified ER staff that patient was unresponsive on the xray table. This RN arrived to find patient having seizure-like activity. Pt would not respond to name or sternal rub. Vitals stable, 119/77, 98%, HR 71. Pt continued with seizure like activity for a total of approximately 5 minutes. Seizure like activity then stopped, patient opened her eyes, and was responsive to staff. Patient was able to lay still on the table for the remaining 2 images. Patient returned to room 1 in the ER and placed back on the monitor. Patient had complete resolution of her symptoms and no postictal state. Patient was able to recall what nursing staff said while having seizure like activity.
[2023-02-12] MEDS: Potassium Chloride 20 MEQ TABCR PO (15:45)
--- NOTE | 2023-02-12 16:57 | NUR.NOTE ---
Nursing Note: Referral faxed to PCP for syncope fall down stairs/ appt. this week.
[2023-02-15 17:25] LABS: Lab Add On Test DONE
[2023-02-15 17:40] LABS: FREE T4 0.89 ng/dL (0.76-1.46); TSH (W/Ref FT4) 0.62 uIU/mL (0.36-3.74)
[2023-02-16 22:04] LABS: T3,Free 4.8 pg/mL (2.8-5.3)
== END 2023-02-12 16:50 | disposition home or self-care (01) ==
PROVIDERS: Emergency Provider Student in an Organized Health Care Education/Training Program; PCP Student in an Organized Health Care Education/Training Program
DX: R56.9 Unspecified convulsions (principal); R79.89 Other specified abnormal findings of blood chemistry; R55 Syncope and collapse; E87.6 Hypokalemia; E86.0 Dehydration; W10.9XXA Fall (on) (from) unspecified stairs and steps, initial encounter
CPT/HCPCS: 36415; 73552; 74177; 80053; 80307; 81025; 86850; 86900; 86901; 93005; 96374; 99285; 70450; 71260; 72125; 72128; 72131; 72170; 80320; 80329; 83735; 84439; 84443; 84481; 84484; 85025; 93010; 99284; J2405; J3490

== ENCOUNTER 2023-03-06 07:29 | Emergency (ER) | payer MEDICAID, SELFPAY ==
[2023-03-06 07:36] VITALS: BP 108/68; PULSE 71; RESP 16; O2SAT 98
--- NOTE | 2023-03-06 07:44 | DI.CT_ITS ---
Exam(s) CT CHEST/ABD/PEL W EXAM: CT CHEST/ABD/PEL W CLINICAL HISTORY: vomiting, coffeeground emesis TECHNIQUE: Imaging Protocol: Axial computed tomography images with coronal and sagittal reformatted images were created and reviewed CONTRAST MATERIAL: Intravenous: Omnipaque 350 contrast volume:100 mL Oral: No COMPARISON: CT CT THORACIC LUMBAR SPINE WO from 02/12/2023 FINDINGS: CHEST: Tracheobronchial tree: Patent where visualized. Pulmonary parenchyma: No consolidation or dominant measurable mass. No architectural distortion. Visualized thyroid gland: Unremarkable. Mediastinum and Dolores: No dominant adenopathy or fluid collection. The esophagus is unremarkable. The re is triangular soft tissue seen in the anterior mediastinum consistent with residual thymic tissue. Pleura: No effusion or pneumothorax. Heart: The heart is not dilated. No coronary artery calcifications are seen. No pericardial effusion. Pulmonary arteries: The segmental and subsegmental pulmonary arteries are inadequately opacified. No large central pulmonary embolus is present. Aorta: Thoracic aorta non-dilated. Lymph nodes: Within normal limits. Soft tissues: Unremarkable. Bones:Within normal limits for the patient's age. ABDOMEN: Liver: Normal density. No measurable mass. Portal, Superior Mesenteric, and Splenic Veins: Unremarkable. Gallbladder and Biliary Tract: No radiodense calculus or dilation. Pancreas: Normal density, no abnormal calcifications or inflammatory process. Spleen: Normal. Adrenals: No masses seen. Kidneys: Normal size, contour and axis. No radiodense stones or obstructive uropathy. No masses seen. Abdominal Aorta: Abdominal portion non-dilated. Bowel: No obstruction or bowel wall thickening. Appendix is unremarkable. The stomach is unremarkable . Peritoneal Cavity: No ascites, collection or mesenteric inflammatory response. No free air. Lymph Nodes: Within normal limits. Bones: Within normal limits for the patient's age. Soft Tissues: Unremarkable. PELVIS: Bladder: Symmetric distention, no gross wall thickening. Reproductive Organs: Unremarkable as visualized. Lymph Nodes: Within normal limits. Bones: Within normal limits. IMPRESSION: 1. Unremarkable CT scan of the abdomen and pelvis. 2. Unremarkable CT scan of the chest. 3. Findings were discussed with Dr. Rodas at 10:30 a.m. on 03/06/2023. RADIATION DOSE DELIVERED: 1,331.51mGy.cm Total DLP DATA REPOSITORY: All CT scans at this facility are submitted to the National Radiology Data Registry (NRDR) Dose Index Registry (DIR) with the [employer] ([employer]). RADIATION OPTIMIZATION: All CT scans at this facility use at least one of these dose optimization te chniques: automated exposure control; mA and/or kV adjustment per patient size (includes targeted exa ms where dose is matched to clinical indication); or iterative reconstruction.
--- NOTE | 2023-03-06 07:45 | DI.CT_ITS ---
Exam(s) CT HEAD WO EXAM: CT HEAD WO CLINICAL HISTORY: pituitary adenoma, now vomiting. TECHNIQUE: Imaging Protocol: Axial computed tomography images with coronal and sagittal reformatted images were created and reviewed COMPARISON: CT CT HEAD CERVICAL SPINE WO from 02/12/2023 FINDINGS: Ventricles and Extra axial spaces: Normal in size and morphology for the patient's age. Hemorrhage: None. Cerebral parenchyma: Normal. Midline shift: None. Brainstem/Cerebellum: Normal. Calvarium: Normal. Visualized Paranasal sinuses/Mastoids: Clear. Soft Tissues: Unremarkable. IMPRESSION: 1. No acute intracranial process. 2. Findings were discussed with Dr. Rodas at 12:30 p.m. a a.m. on 03/06/2023. RADIATION DOSE DELIVERED: 760.5mGy.cm Total DLP DATA REPOSITORY: All CT scans at this facility are submitted to the National Radiology Data Registry (NRDR) Dose Index Registry (DIR) with the [employer] (A[employer]). RADIATION OPTIMIZATION: All CT scans at this facility use at least one of these dose optimization te chniques: automated exposure control; mA and/or kV adjustment per patient size (includes targeted exa ms where dose is matched to clinical indication); or iterative reconstruction.
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
[2023-03-06 08:05] LABS: Abs Immature Grans 0.07 10^3/uL (0.0-0.06); Absolute Basophil Count 0.04 10^3/uL (0.0-0.2); Absolute Eosinophil Count 0.04 10^3/uL (0.0-0.7); Absolute Lymphocyte Count 1.85 10^3/uL (1.2-3.4); Absolute Monocyte Count 0.47 10^3/uL (0.1-0.8); Absolute Neutrophil Count 4.81 10^3/uL (1.2-6.7); Basophils % 0.5; Eosinophils % 0.5; HCT 41.3 % (36.0-46.0); HGB 14.1 g/dL (11.2-15.7); Lymphocytes % 25.4; MCH 29.6 pg (27.0-33.0); MCHC 34.1 % (32.0-36.0); MCV 87 fL (80-95); MPV 8.8 fL (8.0-11.0); Monocytes % 6.5; Neutrophils % 66.1; Platelet Count 271 10^3/uL (130-400); RBC 4.77 10^6/uL (3.93-5.22); RDW 11.9 % (11.7-14.6); RDW-SD 38.5 fL; WBC 7.28 10^3/uL (4.4-10.8)
[2023-03-06] MEDS: Normal Saline 1,000 ML 1000 ML IV ×2 (08:10→09:35)
[2023-03-06] MEDS: Pantoprazole 40 MG VIAL IVP (08:11)
[2023-03-06] MEDS: Ondansetron 4 MG/2 ML VIAL IVP (08:11)
[2023-03-06 08:36] LABS: ALT 22 U/L (14-59); AST 15 U/L (15-37); Albumin 4.2 g/dL (3.4-5.0); Alkaline Phosphatase 68 U/L (46-116); BUN 8 mg/dL (7-18); Bilirubin, Total 0.5 mg/dL (0.2-1.0); CREATININE 0.9 mg/dL (0.55-1.02); Calcium 9.5 mg/dL (8.5-10.1); Chloride 104 mmol/L (98-107); Estimated GFR 91.55 (mL/min/1.73m2); Glucose 98 mg/dL (74-106); Lipase 27 U/L (16-77); Potassium 3.7 mmol/L (3.5-5.1); Sodium 140 mmol/L (136-145); TSH (W/Ref FT4) 0.42 uIU/mL (0.36-3.74); Total Protein 8.1 g/dL (6.4-8.2)
[2023-03-06 08:59] LABS: Prothrombin Time 10.3 sec (9.3-11.0)
[2023-03-06] MEDS: LORazepam 2 MG/ML VIAL 1 MG IVP (09:14)
[2023-03-06 09:33] LABS: HCG Qual (Serum) Negative
[2023-03-06] MEDS: Normal Saline - Diluent 50 ML VIAL IJ (09:56)
[2023-03-06] MEDS: Omnipaque 350 MG/ML 500 ML BTL-Imaging package IJ (09:58)
--- NOTE | 2023-03-06 10:05 | NUR.NOTE ---
Nursing Note: Assumed care of patient at this time.
[2023-03-06 10:29] LABS: Bilirubin Negative (Negative); Blood Negative (Negative); Clarity Sl Cloudy (Clear); Glucose Negative (Negative); Ketones 15 mg/dL (Negative); Leukocyte Esterase Negative (Negative); Nitrite Negative (Negative); Specific Gravity 1.015 (1.005-1.025); Urobilinogen 0.2 mg/dL (Up to 0.2); pH 8.5 (5-8)
[2023-03-06 10:46] LABS: *AMPHETAMINES SCREEN URINE Negative (Negative); *BARBITURATES SCREEN URINE Negative (Negative); *BENZODIAZEPINES SCREEN URINE Negative (Negative); Cannabinoids THC Positive (Negative); Cocaine Screen,Urine Negative (Negative); METHADONE URINE SCREEN Negative (Negative); OPIATES URINE SCREEN Negative (Negative)
[2023-03-06 10:48] LABS: Tricyclic Antidepressants Negative (Negative)
[2023-03-06 11:20] VITALS: BP 108/67; PULSE 58; RESP 16; TEMP 36.6; O2SAT 100
[2023-03-06 11:40] VITALS: BP 108/67; PULSE 58; RESP 16; O2SAT 100
== END 2023-03-06 11:46 | disposition home or self-care (01) ==
PROVIDERS: Emergency Provider Emergency Medicine; PCP Student in an Organized Health Care Education/Training Program
DX: R11.2 Nausea with vomiting, unspecified (principal)
CPT/HCPCS: 74177; 80053; 80307; 83690; 96361; 96374; 96375; 99284; 70450; 71260; 81003; 83735; 84443; 84703; 85025; 85610; 85730; J2060; J2405

== ENCOUNTER 2023-05-10 03:41 | Emergency (ER) | payer MEDICAID, SELFPAY ==
[2023-05-10] VITALS (52 sets, daily range): BP systolic 100–120; BP diastolic 46–74; PULSE 61–82; RESP 8–34; TEMP 36.8–36.9; O2SAT 98–99
[2023-05-10] MEDS: ACETAMINOPHEN 1,000 MG/100 ML BTL 400 MG IVPB (04:06)
[2023-05-10 04:10] LABS: Lactate 1.3 mmol/L (0.6-1.4)
[2023-05-10] MEDS: Normal Saline 1,000 ML 1000 ML IV (04:11)
[2023-05-10 04:12] LABS: Abs Immature Grans 0.03 10^3/uL (0.0-0.06); Absolute Basophil Count 0.02 10^3/uL (0.0-0.2); Absolute Eosinophil Count 0.08 10^3/uL (0.0-0.7); Absolute Lymphocyte Count 1.93 10^3/uL (1.2-3.4); Absolute Monocyte Count 0.35 10^3/uL (0.1-0.8); Absolute Neutrophil Count 2.77 10^3/uL (1.2-6.7); Basophils % 0.4; Eosinophils % 1.5; HCT 37.1 % (36.0-46.0); HGB 12.9 g/dL (11.2-15.7); Immature Grans % 0.6; Lymphocytes % 37.3; MCH 29.9 pg (27.0-33.0); MCHC 34.8 % (32.0-36.0); MCV 86 fL (80-95); MPV 9.6 fL (8.0-11.0); Monocytes % 6.8; Neutrophils % 53.4; Platelet Count 200 10^3/uL (130-400); RBC 4.31 10^6/uL (3.93-5.22); RDW 12.1 % (11.7-14.6); RDW-SD 38.5 fL; WBC 5.18 10^3/uL (4.4-10.8)
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
[2023-05-10 04:33] LABS: ALT 17 U/L (14-59); AST 15 U/L (15-37); Albumin 3.6 g/dL (3.4-5.0); Alkaline Phosphatase 58 U/L (46-116); Anion Gap 10.9 mmol/L (3-11); BUN 7 mg/dL (7-18); Bilirubin, Total 0.4 mg/dL (0.2-1.0); CO2 25.1 mmol/L (21.0-32.0); CREATININE 0.7 mg/dL (0.55-1.02); Calcium 9.4 mg/dL (8.5-10.1); Chloride 104 mmol/L (98-107); Estimated GFR 123.78 (mL/min/1.73m2); Glucose 105 mg/dL (74-106); Lipase 26 U/L (16-77); Potassium 3.3 mmol/L (3.5-5.1); Sodium 140 mmol/L (136-145); Total Protein 7.4 g/dL (6.4-8.2)
[2023-05-10] MEDS: Ketorolac 15 MG/ML VIAL IVP (04:53)
[2023-05-10 05:08] LABS: HCG Quant, Pregnancy < 1 mIU/mL (1-3)
[2023-05-10] MEDS: Omnipaque 350 MG/ML 100 ML BTL IJ (05:19)
[2023-05-10] MEDS: Normal Saline - Diluent 50 ML VIAL IJ (05:19)
--- NOTE | 2023-05-10 05:30 | DI.CT_ITS ---
Exam(s) CT ABDOMEN PELVIS W EXAM: CT ABDOMEN PELVIS W CLINICAL HISTORY: LLQ pain, flank pain, eval for stone TECHNIQUE: Imaging Protocol: Axial computed tomography images with coronal and sagittal reformatted images were created and reviewed CONTRAST MATERIAL: Intravenous: Omnipaque 350 Contrast volume:100 mL Oral: No COMPARISON: CT CT CHEST/ABD/PEL W from 03/06/2023 FINDINGS: ABDOMEN: Lung Bases: Normal where visualized. Liver: Normal density. No measurable mass. Portal, Superior Mesenteric, and Splenic Veins: Unremarkable. Gallbladder and Biliary Tract: No radiodense calculus or dilation. Pancreas: Normal density, no abnormal calcifications or inflammatory process. Spleen: Normal. Adrenals: No masses seen. Kidneys: Normal size, contour and axis. No radiodense stones or obstructive uropathy. No masses seen. Abdominal Aorta: Abdominal portion non-dilated. Bowel: No obstruction or bowel wall thickening. Appendix is unremarkable. Peritoneal Cavity: No ascites, collection or mesenteric inflammatory response. No free air. Lymph Nodes: Within normal limits. Bones: Within normal limits for the patient's age. Soft Tissues: Unremarkable. PELVIS: Bladder: Symmetric distention, no gross wall thickening. Reproductive Organs: Unremarkable as visualized. There are bilateral ovarian follicles. The largest is on the right and measures 2.2 cm. Lymph Nodes: Within normal limits. Bones: Within normal limits for the patient's age. IMPRESSION: 1. No acute abdominal or pelvic process. 2. Bilateral ovarian follicles. The largest measures 2.2 cm and is on the right ovary. RADIATION DOSE DELIVERED: 841.33mGy.cm Total DLP DATA REPOSITORY: All CT scans at this facility are submitted to the National Radiology Data Registry (NRDR) Dose Index Registry (DIR) with the [employer] (ACR). RADIATION OPTIMIZATION: All CT scans at this facility use at least one of these dose optimization te chniques: automated exposure control; mA and/or kV adjustment per patient size (includes targeted exa ms where dose is matched to clinical indication); or iterative reconstruction.
[2023-05-10 05:58] LABS: Bilirubin Negative (Negative); Blood Trace-lysed (Negative); Clarity Clear (Clear); Glucose Negative (Negative); Ketones Negative (Negative); Leukocyte Esterase Negative (Negative); Nitrite Negative (Negative); Specific Gravity 1.015 (1.005-1.025); pH 7.5 (5-8)
[2023-05-10 06:01] LABS: Bacteria Rare HPF (Negative); C & S Indicated? No; Casts Negative LPF (Negative); Crystals Negative HPF (Negative); Epithelial Cells Few HPF (Negative); Mucus Negative (Negative); RBC 0-2 HPF (0-2); WBC Negative HPF (0-5)
--- NOTE | 2023-05-10 06:03 | DI.VRAD_ITS ---
PROCEDURE INFORMATION: Exam: CT Abdomen And Pelvis With Contrast Exam date and time: 05/10/2023 5:22 AM Age: 22 years old Clinical indication: Abdominal pain; Localized; Lower TECHNIQUE: Imaging protocol: Computed tomography of the abdomen and pelvis with contrast. Contrast material: OMNIPAQUE 350; Contrast volume: 100 ml; Contrast route: INTRAVENOUS (IV); COMPARISON: CT CHEST/ABD/PEL W 03/06/2023 9:54 AM FINDINGS: Liver: Normal. No mass. Gallbladder and bile ducts: Normal. No calcified stones. No ductal dilation. Pancreas: Unremarkable. Spleen: Normal. Adrenal glands: Normal. No mass. Kidneys and ureters: Normal. No hydronephrosis. Stomach and bowel: Unremarkable. No bowel wall thickening or intestinal obstruction. Appendix: Normal appendix. Intraperitoneal space: Unremarkable. No pneumoperitoneum. No abscess. Vasculature: Unremarkable. Lymph nodes: Unremarkable. Urinary bladder: Unremarkable as visualized. Reproductive: Collapsed/ruptured/involuted cyst remnant in the right ovary measuring 2.2 cm. Bones/joints: Unremarkable. No acute fracture. Soft tissues: Unremarkable. IMPRESSION: Collapsed/ruptured/involuted cyst remnant in the right ovary measuring 2.2 cm. Dictated and Authenticated by: Sunil Bee MD. Ordering:DAYAN Rose MD
== END 2023-05-10 06:20 | disposition home or self-care (01) ==
LOC: ER 06:46
PROVIDERS: Emergency Provider Student in an Organized Health Care Education/Training Program; PCP Student in an Organized Health Care Education/Training Program
DX: N83.201 Unspecified ovarian cyst, right side (principal)
CPT/HCPCS: 80053; 81025; 83690; 96361; 96365; 96375; 99285; 74177; 81003; 81015; 83605; 84702; 85025; 99284; J0131; J1885; J3490

== ENCOUNTER 2023-05-23 14:36 | Outpatient (CLI) | payer MEDICAID, SELFPAY ==
--- NOTE | 2023-06-07 12:56 | W.NOCTURNAL ---
Date of service: 05/25/23 Time of Service: 01:30 Nocturnal Oximetry Note: Overnight Oximetry Amount of time analyzed: 10 hours 36 minutes on room air Number of minutes under 88%: 1.1 JUAN F: 0.7 Appearance of oxygen saturation pattern: Normal Recommendation: No supplemental nocturnal oxygen needed. No concerning finding for EVELYN on this limited study. Hortensia Hernandez MD Pulmonary & Critical Care Medicine
== END 2023-05-23 14:37 | disposition home or self-care (01) ==
PROVIDERS: PCP Student in an Organized Health Care Education/Training Program; Visit Provider Student in an Organized Health Care Education/Training Program
DX: R51.9 Headache, unspecified (principal)
CPT/HCPCS: 94762

== ENCOUNTER 2023-09-25 02:14 | Emergency (ER) | payer MEDICAID, SELFPAY ==
[2023-09-25 02:14] VITALS: BP 114/78; PULSE 92; RESP 18; TEMP 37; O2SAT 98
[2023-09-25 02:16] VITALS: RESP 18
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
--- NOTE | 2023-09-25 02:37 | NUR.NOTE ---
PT became extremely emotional and states that she wants to leave. PT states that all we do is give her Ativan and tell her she has anxiety and send her home. PT refused to sign AMA form. Nursing Note:
--- NOTE | 2023-09-28 07:13 | NUR.NOTE ---
Accessed chart to determine orders for EKG and to determine whether or not one needs to be cancelled. Patient left AMA prior to the EKG. Nursing Note:
== END 2023-09-25 02:55 | disposition left against medical advice (07) ==
PROVIDERS: Emergency Provider Student in an Organized Health Care Education/Training Program; PCP Student in an Organized Health Care Education/Training Program
DX: Z53.29 Procedure and treatment not carried out because of patient's decision for other reasons; R30.9 Painful micturition, unspecified; R10.32 Left lower quadrant pain; N92.6 Irregular menstruation, unspecified; R07.89 Other chest pain; M79.602 Pain in left arm; R35.0 Frequency of micturition
CPT/HCPCS: 80053; 84484; 85025; 85379; 99282

== ENCOUNTER 2024-02-17 00:02 | Emergency (ER) | payer MEDICAID, SELFPAY ==
[2024-02-17] VITALS (25 sets, daily range): BP systolic 88–132; BP diastolic 52–83; PULSE 83–124; RESP 10–27; TEMP 36.5; O2SAT 98–100
--- NOTE | 2024-02-17 | RT.EKG_ITS ---
APPROVED REPORT Exam: Resting ECG Reason for Exam: convulsions Patient Location: E HR:103 bpm ECG Measurements Heart Rate 103 AXIS NM 131 P 64 QRSd 78 QRS 44 QT 331 T 37 QTc 433 Conclusion Sinus tachycardia...rate> 99 Atrial premature complex...SV complex w/ short R-R interval There are no significant changes compared to prior EKG performed on 02/12/2023 at 10:00.
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
[2024-02-17] MEDS: ACETAMINOPHEN 1,000 MG/100 ML BTL 400 MG IVPB (00:19)
[2024-02-17] MEDS: Lactated Ringers 1,000 ML 1000 ML IV (00:19)
[2024-02-17 00:26] LABS: Abs Immature Grans 0.07 10^3/uL (0.0-0.06); Absolute Basophil Count 0.01 10^3/uL (0.0-0.2); Absolute Eosinophil Count 0.01 10^3/uL (0.0-0.7); Absolute Lymphocyte Count 2.85 10^3/uL (1.2-3.4); Absolute Monocyte Count 0.79 10^3/uL (0.1-0.8); Absolute Neutrophil Count 6.11 10^3/uL (1.2-6.7); Basophils % 0.1 %; Eosinophils % 0.1 %; Immature Grans % 0.7 %; MCHC 34.1 % (32.0-36.0); MCV 88 fL (80-95); MPV 8.2 fL (8.0-11.0); Neutrophils % 62.1 %; Platelet Count 309 10^3/uL (130-400); RBC 4.67 10^6/uL (3.93-5.22); RDW 12.7 % (11.7-14.6); RDW-SD 40.4 fL; WBC 9.84 10^3/uL (4.4-10.8)
[2024-02-17 00:41] LABS: ALT 34 U/L (14-59); AST 25 U/L (15-37); Albumin 3.9 g/dL (3.4-5.0); Alkaline Phosphatase 84 U/L (46-116); Anion Gap 11.6 mmol/L (3-11); BUN 26 mg/dL (7-18); Bilirubin, Total 0.51 mg/dL (0.2-1.0); CO2 25.4 mmol/L (21.0-32.0); CREATININE 0.9 mg/dL (0.55-1.02); Calcium 8.6 mg/dL (8.5-10.1); Chloride 102 mmol/L (98-107); Estimated GFR 90.98 (mL/min/1.73m2); Glucose 119 mg/dL (74-106); Lipase 38 U/L (16-77); Potassium 3.6 mmol/L (3.5-5.1); Sodium 139 mmol/L (136-145); Total Protein 7.6 g/dL (6.4-8.2)
[2024-02-17 01:10] LABS: HCG Quant, Pregnancy < 1 mIU/mL (1-3)
== END 2024-02-17 02:29 | disposition left against medical advice (07) ==
PROVIDERS: Emergency Provider Emergency Medicine; PCP Student in an Organized Health Care Education/Training Program
DX: R10.2 Pelvic and perineal pain (principal); M54.50 Low back pain, unspecified; Z53.29 Procedure and treatment not carried out because of patient's decision for other reasons
CPT/HCPCS: 36415; 80053; 83690; 93005; 96361; 96365; 99284; 84702; 85025; 93010; 99283; J0131